=== PATIENT | male | born 1975 | race African-American/Black ===

== ENCOUNTER 2021-11-16 13:12 | Emergency (ER) | payer MEDICARE, MEDICAID ==
--- NOTE | 2021-11-16 15:32 | ED Physician Documentation ---
History of Present Illness - Stated complaint Stated Complaint: BAL/MEDICAL CLEARANCE - Chief complaint Chief Complaint: General - Additonal information Additional information: 46-year-old male has a history of heavy alcohol use, schizoaffective and bipolar disorder is brought to the emergency department by his supportive security compliance specialist in order to obtain medical clearance for him to go to [facility]. His intake is scheduled for 10 PM tonight. His housing supportive specialist picked him up from a local alf where he was kicked out for being intoxicated. He does report that he had a few swigs of alcohol prior to presenting here. They would like medical clearance for his blood pressure and reported history of a heart murmur. His blood pressure is 140/90. I do not auscultate a murmur on my exam. Review of Systems Unable to obtain: Intoxicated PD PAST MEDICAL HISTORY - Allergies Allergies/Adverse Reactions: Allergies Allergy/AdvReac Type Severity Reaction Status Date / Time No Known Drug Allergies Allergy Verified 11/16/21 13:18 PD ED PE NORMAL - General General: No acute distress, Other (Smells heavily of in alcohol appears clinically intoxicated) - HEENT HEENT: PERRL, Moist mucous membranes - Neck Neck: Supple, no meningeal sign, No adenopathy - Cardiac Cardiac: RRR, No murmur, Strong equal pulses - Respiratory Respiratory: No respiratory distress, Clear bilaterally - Abdomen Abdomen: Normal bowel sounds, Soft, Non tender - Back Back: No CVA TTP, No spinal TTP - Derm Derm: Normal color, Warm and dry, No rash - Extremities Extremities: No deformity, No tenderness to palpate, Normal ROM s pain - Neuro Neuro: shactor 2-12 intact, No motor deficit. No: Normal speech (Slurred speech) Eye Opening: To Voice Motor: Obeys Commands Verbal: Confused GCS Score: 13 - Psych Psych: Normal affect Results - Vitals Vitals: Vital Signs - 24 hr 11/16/21 11/16/21 13:18 17:22 Temperature 36.6 C Heart Rate 67 67 Respiratory 16 18 Rate Blood Pressure 140/90 H 118/88 H O2 Saturation 99 97 Oxygen O2 Source Room air - EKG (time done) 1608 Rate: Rate (enter#) (59) Rhythm: Sinus bradycardia [place]: Normal Intervals: Normal CA QRS: Normal Ischemia: Normal ST segments Compare to prior EKG: Old EKG unavailable Computer interpretation: Agree with computer - Labs Labs: Laboratory Tests 11/16/21 11/16/21 16:13 16:13 WBC 4.9 RBC 5.55 Hgb 13.1 L Hct 40.5 L MCV 73.0 L MCH 23.6 L MCHC 32.3 RDW 14.3 Plt Count 259 MPV 9.3 Neut # (Auto) 3.0 Lymph # (Auto) 1.4 L [place] # (Auto) 0.4 Eos # (Auto) 0.1 Baso # (Auto) 0.0 Absolute Nucleated RBC 0.00 Nucleated RBC % 0.0 Sodium 140 Potassium 4.0 Chloride 102 Carbon Dioxide 27 Anion Gap 11.0 BUN 16 Creatinine 0.9 Estimated GFR (MDRD) 109 Glucose 116 H Calcium 8.8 Total Bilirubin 0.7 AST 39 ALT 35 Alkaline Phosphatase 40 L Total Protein 7.6 Albumin 4.2 Globulin 3.4 Albumin/Globulin Ratio 1.2 Lipase 30 Ethyl Alcohol 213.0 - Rads (name of study) cxr Radiology: Final report received (no acute cardiopulmonary process) PD MEDICAL DECISION MAKING - ED course Complexity details: reviewed results, re-evaluated patient, considered differential, d/w patient ED course: 46-year-old male who is homeless was brought to the emergency department by his security compliance specialist to obtain medical clearance in order to go to a [facility]. He admits that the patient had drank heavily just prior to picking him up. On presentation to the emergency department the patient does follow commands though is somnolent and snores heavily. He smells heavily of alcohol. Initially [facility] had concerns as the patient had reported a history at some point in the past of a murmur and hypertension. We do note modest hypertension here in the emergency department but his screening EKG is unremarkable. He had also been reportedly had a murmur in the past though one is not auscultated on exam today. His screening EKG is unremarkable for age. His electrolytes and blood count are normal. His blood alcohol is 213. However patient is too intoxicated at this time to safely leave the emergency department. He reportedly has an intake at [facility] that is scheduled for 10 PM. He will be allowed to metabolize here in the emergency department and when awake and appropriate enough we will call Ted the director of [facility] who has agreed to come pick the patient up and go to [facility]. 1838: Ted is at the bedside. He is evaluated the patient. Patient is now alert smoke her here and and is ready for discharge. He will be released to Ted who will take him to I to look for further processing of alcohol use and detox Departure - Departure Disposition: 01 Home, Self Care Clinical Impression: Alcohol intoxication Qualifiers: Complication of substance-induced condition: uncomplicated Qualified Code(s): F10.920 - Alcohol use, unspecified with intoxication, uncomplicated Condition: Stable Record reviewed to determine appropriate education?: Yes Comments: Jose you are brought to the emergency department today to obtain medical clearance for detox. Your EKG is normal. Your screening labs with the exception of an elevated alcohol level which was 213 are normal. Your chest x-ray is normal. We do not hear a murmur on exam. Your blood pressure has been normal or sometimes just mildly elevated but no treatment is indicated today from the emergency department. I wish you well in your journey.
[2021-11-16] MEDS ORDERED: SODIUM CHLORIDE 0.9% 1,000 ML IV STA (16:04)
[2021-11-16 16:18] LABS: BASOPHILS % (AUTO) 0.8 %; EOSINOPHILS # (AUTO) 0.1 10^3/uL (0.0-0.7); EOSINOPHILS % (AUTO) 1.9 %; HCT - HEMATOCRIT 40.5 % (42.0-52.0); HGB - HEMOGLOBIN 13.1 g/dL (14.0-18.0); LYMPHOCYTES # (AUTO) 1.4 10^3/uL (1.5-3.5); LYMPHOCYTES % (AUTO) 28.5 %; MEAN CORPUSCULAR HEMOGLOBIN 23.6 pg (27.0-31.0); MEAN CORPUSCULAR HGB CONC 32.3 g/dL (32.0-36.0); MEAN PLATELET VOLUME 9.3 fL (7.4-11.4); MONOCYTES # (AUTO) 0.4 10^3/uL (0.0-1.0); MONOCYTES % (AUTO) 7.4 %; NEUTROPHILS % (AUTO) 61.2 %; PLT - PLATELET COUNT 259 10^3/uL (130-450); RED BLOOD COUNT 5.55 10^6/uL (4.70-6.10); RED CELL DISTRIBUTION WIDTH 14.3 % (12.0-15.0); WHITE BLOOD COUNT 4.9 x10^3/uL (4.8-10.8)
--- NOTE | 2021-11-16 16:27 | XRAY Report ---
PROCEDURE: Chest 1 View X-Ray INDICATIONS: chest pain TECHNIQUE: One view of the chest was acquired. COMPARISON: None FINDINGS: Surgical changes and devices: None. Lungs and pleura: No pleural effusions or pneumothorax. Lungs are clear. Mediastinum: Mediastinal contours appear normal. Heart size is normal. Bones and chest wall: No suspicious bony lesions. Overlying soft tissues appear unremarkable. Age-i ndeterminate but chronic appearing healed rib fracture deformities noted in the right upper chest. IMPRESSION: Chest without acute cardiopulmonary abnormalities or focal airspace disease. Multiple age-indeterminate but chronic appearing rib fracture deformities noted in the upper right ch est. Recommend clinical correlation. Reviewed by: Jean Hwang MD on 11/16/2021 4:26 PM PDT Approved by: Jean Hwang MD on 11/16/2021 4:26 PM PDT Station ID: [id number]
[2021-11-16 16:31] LABS: ALBUMIN 4.2 g/dL (3.2-5.5); ALBUMIN/GLOBULIN RATIO 1.2 (1.0-2.2); BILIRUBIN,TOTAL 0.7 mg/dL (0.2-1.0); CALCIUM 8.8 mg/dL (8.5-10.3); CREATININE 0.9 mg/dL (0.6-1.2); TOTAL PROTEIN 7.6 g/dL (6.7-8.2)
[2021-11-16 17:22] VITALS: BP 118/88
== END 2021-11-16 18:45 | disposition home or self-care (01) ==
LOC: ED 13:12
DX: Z02.79 Encounter for issue of other medical certificate (principal); F10.920 Alcohol use, unspecified with intoxication, uncomplicated; Z59.00 Homelessness unspecified
CPT/HCPCS: 36415; 71045; 80053; 83690; 85025; 93005; 96360; 99283; 99284; G0480; 80320

== ENCOUNTER 2022-03-17 20:33 | Outpatient (CLI) | payer MEDICARE, MEDICAID | END 2022-03-17 20:34 | disposition critical access hospital (66) | LOC: EMS 20:33 | DX: R45.851 Suicidal ideations (principal); R45.1 Restlessness and agitation; Z72.89 Other problems related to lifestyle | CPT/HCPCS: A0425; A0429 ==

== ENCOUNTER 2022-08-18 07:35 | Outpatient (CLI) | payer MEDICARE, MEDICAID | END 2022-08-18 07:36 | disposition critical access hospital (66) | LOC: EMS 07:35 | DX: F10.129 Alcohol abuse with intoxication, unspecified (principal) | CPT/HCPCS: A0425; A0429 ==

== ENCOUNTER 2022-08-18 07:53 | Emergency (ER) | payer MEDICARE, MEDICAID ==
--- OUTSIDE RECORDS SUMMARY | 2022-08-18 08:23 | EXTERNAL MEDICAL SUMMARY RPT | Continuity of Care Document ---
:1975 Author Organization [facility] Address [address] [place] [address] Phone Care Team Providers Name Role Phone StacieRachel lujan Unavailable Unavailable Allergies and Intolerances date description facility type (no date) amoxicillin [facility] (unknown) Encounters No information. Functional Status No information. Immunizations No information. Medications No information. Problems date description facility 2022-06-02 11:49 Alcohol dependence, [facility] 2022-06-04 00:00 Alcoholic intoxication [facility] 2022-06-04 07:43 Alcohol abuse with intoxication, [facility] 2022-06-04 07:44 Alcohol abuse, [facility] 2022-06-04 07:44 Alcohol abuse with intoxication, unspec [facility] 2022-06-04 07:44 Alcohol dependence, uncomplicated [facility] 2022-06-04 07:44 Slurred speech [facility] 2022-08-05 11:21 Alcohol dependence, [facility] 2022-08-05 11:23 Alcohol dependence, [facility] 2022-08-06 09:03 Alcohol abuse with intoxication, [facility] 2022-08-06 09:04 Alcohol abuse with intoxication, [facility] 2022-08-06 09:08 Alcohol abuse, [facility] 2022-08-06 09:09 Alcohol abuse with intoxication, [facility] Procedures date description facility 2022-06-04 00:00 Computed tomography of head or brain [facility] contrast Results/Labs test date author facility value unit interpret ation Result panel 1 (unknown) (no date) (unknown) [facility] Result panel 2 (unknown) (no date) (unknown) [facility] Result panel 3 (unknown) (no date) (unknown) [facility] Result panel 4 (unknown) (no date) (unknown) [facility]) Result panel 5 (unknown) (no date) (unknown[facility]) Result panel 6 (unknown) (no date) (unknown[facility]) Result panel 7 (unknown) (no date) (unknown[facility]) Result panel 8 (unknown) (no date) (unknown[facility]) Result panel 9 (unknown) (no date) (unknown[facility]) Result panel 10 (unknown) (no date) (unknown[facility]) Result panel 11 (unknown) (no date) (unknown[facility]) Result panel 12 (unknown) (no date) (unknown[facility]) Result panel 13 (unknown) (no date) (unknown[facility]) Result panel 14 (unknown) (no date) (unknown) [facility]) Result panel 15 (unknown) (no date) (unknown) [facility]) Result panel 16 (unknown) (no date) (unknown) [facility]) Result panel 17 (unknown) (no date) (unknown[facility]) Result panel 18 (unknown) (no date) (unknown) [facility]) Result panel 19 (unknown) (no date) (unknown) [facility]) Result panel 20 (unknown) (no date) (unknown[facility]) Result panel 21 (unknown) (no date) (unknown) [facility]) Result panel 22 (unknown) (no date) (unknown) [facility]) Result panel 23 (unknown) (no date) (unknown) [facility]) Result panel 24 (unknown) (no date) (unknown) [facility]) Result panel 25 (unknown) (no date) (unknown) [facility]) Result panel 26 (unknown) (no date) (unknown) [facility]) Result panel 27 (unknown) (no date) (unknown) [facility]) Result panel 28 (unknown) (no date) (unknown) [facility]) Result panel 29 (unknown) (no date) (unknown[facility]) Result panel 30 (unknown) (no date) (unknown[facility]) Result panel 31 (unknown) (no date) (unknown[facility] Result panel 32 (unknown) (no (unknown) (unknown) (no value) (units (unk nown) date) unknown) (unknown) (no (unknown) (unknown) 06/04/22 (units (unkno wn) date) unknown) (unknown) (no (unknown) (unknown) [id number] (units (unkn own) date) [address] unknown) (unknown) (no (unknown) (unknown) Accession (units (unkn own) date) Number: unknown) [id number] (unknown) (no (unknown) (unknown) Age/Sex: 46 / M (units (unknown) date) Date of Service: unknown) (unknown) (no (unknown) (unknown) [place] (units ( unknown) date) [id number] unknown) (unknown) (no (unknown) (unknown) Approved by: (units (u nknown) date) Chuy Kerns unknownLeighann Martinez on 06/04/2022 at 18:48 (unknown) (no (unknown) (unknown) Brain: No (units (unkn own) date) midline shift. unknown) No intracranial masses or hemorrhage. Mcgill-white (unknown) (no (unknown) (unknown) COMPARISON: (units (un known) date) [facility], unknown) CT, CT HEAD/BRAIN WO CON, 02/21/2022, 14:38. (unknown) (no (unknown) (unknown) CSF spaces: (units (un known) date) Basal cisterns unknown) are patent. No extra-axial fluid collections. (unknown) (no (unknown) (unknown) CT Scan Report (units (unknown) date) unknown) (unknown) (no (unknown) (unknown) : 1975 (units (unknown) date) Acct:[id number] unknown) (unknown) (no (unknown) (unknown) FINDINGS: (units (unkn own) date) unknown) (unknown) (no (unknown) (unknown) IMPRESSION: No (units (unknown) date) acute unknown) intracranial abnormality. (unknown) (no (unknown) (unknown) INDICATIONS: (units (u nknown) date) etoh found down unknown) (unknown) (no (unknown) (unknown) Image quality: (units (unknown) date) Excellent. unknown) (unknown) (no (unknown) (unknown) [facility] (units (unknown) date) unknown) (unknown) (no (unknown) (unknown) Loc: ED (units (unkno wn) date) unknown) (unknown) (no (unknown) (unknown) [id number] (units (unk nown) date) unknown) (unknown) (no (unknown) (unknown) Noncontrast 4.5 (units (unknown) date) mm thick angled unknown) axial sections acquired from the foramen magnum (unknown) (no (unknown) (unknown) Ordering (units (unkno wn) date) Provider: unknown) Rachel Grant D.O. (unknown) (no (unknown) (unknown) PROCEDURE: CT (units ( unknown) date) HEAD/BRAIN WO unknown) CON (unknown) (no (unknown) (unknown) Patient: (units (unkno wn) date) Marianna Meyers unknown) Yobany MR#: (unknown) (no (unknown) (unknown) Procedure: CT (units ( unknown) date) head/brain wo unknown) con (unknown) (no (unknown) (unknown) Signed (units (unkno wn) date) unknown) (unknown) (no (unknown) (unknown) Sinuses: (units (unkno wn) date) Visualized unknown) sinuses and mastoids are clear. (unknown) (no (unknown) (unknown) Skull and face: (units (unknown) date) Calvarium and unknown) visualized facial bones are intact, without (unknown) (no (unknown) (unknown) TECHNIQUE: (units (unk nown) date) unknown) (unknown) (no (unknown) (unknown) Ventricles (units (unk nown) date) unknown) (unknown) (no (unknown) (unknown) are normal in (units ( unknown) date) size and shape. unknown) (unknown) (no (unknown) (unknown) following (units (unkn own) date) unknown) (unknown) (no (unknown) (unknown) interface is (units (u nknown) date) normal. unknown) (unknown) (no (unknown) (unknown) lesions. (units (unkno wn) date) unknown) (unknown) (no (unknown) (unknown) matter (units (unkno wn) date) unknown) (unknown) (no (unknown) (unknown) patient (units (unkno wn) date) unknown) (unknown) (no (unknown) (unknown) size. (units (unkno wn) date) unknown) (unknown) (no (unknown) (unknown) suspicious (units (unk nown) date) unknown) (unknown) (no (unknown) (unknown) to the (units (unkno wn) date) unknown) (unknown) (no (unknown) (unknown) vertex, with (units (u nknown) date) coronal and unknown) sagittal reformats. For radiation dose reduction, the (unknown) (no (unknown) (unknown) was used: (units (unkn own) date) automated unknown) exposure control, adjustment of mA and/or kV according to Result panel 33 (unknown) (no (unknown) (unknown) (no value) (units (unk nown) date) unknown) (unknown) (no (unknown) (unknown) 10 mg PO DAILY (units (unknown) date) Qty: 30 0RF unknown) (unknown) (no (unknown) (unknown) 06/04/22 18:02 (units (unknown) date) unknown) (unknown) (no (unknown) (unknown) 06/04/22 (units (unkno wn) date) unknown) (unknown) (no (unknown) (unknown) 150 mg PO QDAY (units (unknown) date) Qty: 0 unknown) (unknown) (no (unknown) (unknown) 15:57 06/04/22 (units (unknown) date) unknown) (unknown) (no (unknown) (unknown) 17:00 06/04/22 (units (unknown) date) unknown) (unknown) (no (unknown) (unknown) 17:47 (units (unkno wn) date) unknown) (unknown) (no (unknown) (unknown) 20 mg PO QDAY (units ( unknown) date) Qty: 0 unknown) (unknown) (no (unknown) (unknown) 50 mg PO Q8HP (units ( unknown) date) PRNQty: 0 unknown) (unknown) (no (unknown) (unknown) 8 mg PO Qty: 0 (units (unknown) date) unknown) (unknown) (no (unknown) (unknown) Age/Sex: 46 / M (units (unknown) date) unknown) (unknown) (no (unknown) (unknown) Alcohol abuse (units ( unknown) date) unknown) (unknown) (no (unknown) (unknown) Alcohol type: (units ( unknown) date) beer and hard unknown) liquor (unknown) (no (unknown) (unknown) Allergies (units (unkn own) date) unknown) (unknown) (no (unknown) (unknown) Allergy/AdvReac (units (unknown) date) Type Severity unknown) Reaction Status Date / Time (unknown) (no (unknown) (unknown) Blood Pressure (units (unknown) date) 117/75 06/04/22 unknown) 15:57 (unknown) (no (unknown) (unknown) Blood Pressure (units (unknown) date) 117/75 unknown) (unknown) (no (unknown) (unknown) CT head/brain wo (units (unknown) date) con Stat unknown) (unknown) (no (unknown) (unknown) Chief Complaint: (units (unknown) date) Toxicology Problem unknown) (unknown) (no (unknown) (unknown) Course (units (unkno wn) date) unknown) (unknown) (no (unknown) (unknown) : 1975 (units (unknown) date) Acct:[id number] unknown) (unknown) (no (unknown) (unknown) Date of Service: (units (unknown) date) 06/04/22 unknown) (unknown) (no (unknown) (unknown) Departure (units (unkn own) date) unknown) (unknown) (no (unknown) (unknown) Discharge Plan (units (unknown) date) unknown) (unknown) (no (unknown) (unknown) ED Orders (units (unkn own) date) unknown) (unknown) (no (unknown) (unknown) ER Physician: (units ( unknown) date) Rachel Grant unknown) D.O. (unknown) (no (unknown) (unknown) Emergency Report (units (unknown) date) unknown) (unknown) (no (unknown) (unknown) Exam (units (unkno wn) date) unknown) (unknown) (no (unknown) (unknown) General (units (unkno wn) date) unknown) (unknown) (no (unknown) (unknown) HPI - Alcohol (units ( unknown) date) unknown) (unknown) (no (unknown) (unknown) Home Medications (units (unknown) date) unknown) (unknown) (no (unknown) (unknown) Initial Vital (units ( unknown) date) Signs unknown) (unknown) (no (unknown) (unknown) Initial Vital (units ( unknown) date) Signs: unknown) (unknown) (no (unknown) (unknown) [facility] (units (unknown) date) [address] unknown) [place] [id number] (unknown) (no (unknown) (unknown) [id number] (units (unk nown) date) unknown) (unknown) (no (unknown) (unknown) Medical History (units (unknown) date) (Reviewed 04/03/22 unknown) @ 06:23 by Moises Marques DO) (unknown) (no (unknown) (unknown) Medication (units (unk nown) date) Instructions unknown) Recorded Confirmed (unknown) (no (unknown) (unknown) Medication (units (unk nown) date) Instructions unknown) Recorded (unknown) (no (unknown) (unknown) Miscellaneous,Doc (units (unknown) date) MD rafael [Primary unknown) Care Provider] (unknown) (no (unknown) (unknown) Mode of arrival: (units (unknown) date) EMS unknown) (unknown) (no (unknown) (unknown) No Action (units (unkn own) date) unknown) (unknown) (no (unknown) (unknown) Ordered: (units (unkno wn) date) unknown) (unknown) (no (unknown) (unknown) Orders (units (unkno wn) date) unknown) (unknown) (no (unknown) (unknown) Oxygen Delivery (units (unknown) date) Method 06/04/22 unknown) 15:57 (unknown) (no (unknown) (unknown) Oxygen Delivery (units (unknown) date) Method Room Air unknown) (unknown) (no (unknown) (unknown) PTSD (units (unkno wn) date) (post-traumatic unknown) stress disorder) (unknown) (no (unknown) (unknown) Patient History (units (unknown) date) unknown) (unknown) (no (unknown) (unknown) Patient: (units (unkno wn) date) Marianna Meyers unknown) MR#: (unknown) (no (unknown) (unknown) Prescriptions: (units (unknown) date) unknown) (unknown) (no (unknown) (unknown) Previous Rx's (units ( unknown) date) unknown) (unknown) (no (unknown) (unknown) Pulse Oximetry (units (unknown) date) 100 06/04/22 15:57 unknown) (unknown) (no (unknown) (unknown) Pulse Oximetry (units (unknown) date) 100 unknown) (unknown) (no (unknown) (unknown) Pulse Rate 78 (units ( unknown) date) 06/04/22 15:57 unknown) (unknown) (no (unknown) (unknown) Pulse Rate 78 (units ( unknown) date) unknown) (unknown) (no (unknown) (unknown) Referrals: (units (unk nown) date) unknown) (unknown) (no (unknown) (unknown) Related Data (units (u nknown) date) unknown) (unknown) (no (unknown) (unknown) Respiratory Rate (units (unknown) date) 15 06/04/22 15:57 unknown) (unknown) (no (unknown) (unknown) Respiratory Rate (units (unknown) date) 15 16 20 unknown) (unknown) (no (unknown) (unknown) Schizoaffective (units (unknown) date) disorder, bipolar unknown) type (unknown) (no (unknown) (unknown) Signed By: (units (unk nown) date) unknown) (unknown) (no (unknown) (unknown) Smoking Status: (units (unknown) date) Current every day unknown) smoker (unknown) (no (unknown) (unknown) Social History (units (unknown) date) (Reviewed 04/03/22 unknown) @ 06:23 by Moises Marques DO) (unknown) (no (unknown) (unknown) Source: EMS (units (un known) date) unknown) (unknown) (no (unknown) (unknown) Stated Complaint: (units (unknown) date) Intoxicated unknown) (unknown) (no (unknown) (unknown) Substance Use (units ( unknown) date) Type: marijuana unknown) (unknown) (no (unknown) (unknown) Temperature 97.7 (units (unknown) date) F 06/04/22 15:57 unknown) (unknown) (no (unknown) (unknown) Temperature 97.7 (units (unknown) date) F unknown) (unknown) (no (unknown) (unknown) Time Seen by (units (u nknown) date) Provider: 06/04/22 unknown) 17:46 (unknown) (no (unknown) (unknown) Vital Signs - 8 (units (unknown) date) hr unknown) (unknown) (no (unknown) (unknown) Vital Signs (units (un known) date) unknown) (unknown) (no (unknown) (unknown) Vital signs: (units (u nknown) date) unknown) (unknown) (no (unknown) (unknown) alcohol intake (units (unknown) date) frequency: 3 or unknown) more drinks per day (unknown) (no (unknown) (unknown) amoxicillin (units (un known) date) Allergy Verified unknown) 06/04/22 16:00 (unknown) (no (unknown) (unknown) hydroxyzine HCl (units (unknown) date) 50 MG tablet unknown) (unknown) (no (unknown) (unknown) hydroxyzine HCl (units (unknown) date) 50 mg tablet 50 mg unknown) PO Q8HP PRN ##0 07/16/16 (unknown) (no (unknown) (unknown) lisinopril 20 MG (units (unknown) date) tablet unknown) (unknown) (no (unknown) (unknown) lisinopril 20 mg (units (unknown) date) tablet 20 mg PO unknown) QDAY ##0 07/16/16 (unknown) (no (unknown) (unknown) olanzapine 10 mg (units (unknown) date) tablet (Zyprexa) unknown) 10 mg PO DAILY #30 tabs 10/13/21 (unknown) (no (unknown) (unknown) olanzapine (units (unk nown) date) [Zyprexa] 10 mg unknown) tablet (unknown) (no (unknown) (unknown) perphenazine 8 MG (units (unknown) date) tablet unknown) (unknown) (no (unknown) (unknown) perphenazine 8 mg (units (unknown) date) tablet 8 mg PO ##0 unknown) 07/16/16 (unknown) (no (unknown) (unknown) trazodone 150 MG (units (unknown) date) tablet unknown) (unknown) (no (unknown) (unknown) trazodone 150 mg (units (unknown) date) tablet 150 mg PO unknown) QDAY ##0 07/16/16 Result panel 34 (unknown) (no (unknown) (unknown) (no value) (units (unk nown) date) unknown) (unknown) (no (unknown) (unknown) 10 mg PO DAILY (units (unknown) date) Qty: 30 0RF unknown) (unknown) (no (unknown) (unknown) 06/04/22 18:02 (units (unknown) date) unknown) (unknown) (no (unknown) (unknown) 06/04/22 18:51 (units (unknown) date) unknown) (unknown) (no (unknown) (unknown) 06/04/22 18:52 (units (unknown) date) unknown) (unknown) (no (unknown) (unknown) 06/04/22 (units (unkno wn) date) unknown) (unknown) (no (unknown) (unknown) 150 mg PO QDAY (units (unknown) date) Qty: 0 unknown) (unknown) (no (unknown) (unknown) 15:57 06/04/22 (units (unknown) date) unknown) (unknown) (no (unknown) (unknown) 17:00 06/04/22 (units (unknown) date) unknown) (unknown) (no (unknown) (unknown) 17:47 (units (unkno wn) date) unknown) (unknown) (no (unknown) (unknown) 20 mg PO QDAY (units ( unknown) date) Qty: 0 unknown) (unknown) (no (unknown) (unknown) 50 mg PO Q8HP (units ( unknown) date) PRNQty: 0 unknown) (unknown) (no (unknown) (unknown) 8 mg PO Qty: 0 (units (unknown) date) unknown) (unknown) (no (unknown) (unknown) ? (units (unkno wn) date) unknown) (unknown) (no (unknown) (unknown) Abdomen: Soft (units ( unknown) date) nontender unknown) (unknown) (no (unknown) (unknown) Accession Number: (units (unknown) date) [id number] ?? unknown) (unknown) (no (unknown) (unknown) Acct:[id number] (units (unknown) date) unknown) (unknown) (no (unknown) (unknown) Age/Sex: 46 / M (units (unknown) date) unknown) (unknown) (no (unknown) (unknown) Alcohol abuse (units ( unknown) date) unknown) (unknown) (no (unknown) (unknown) Alcohol type: (units ( unknown) date) beer and hard unknown) liquor (unknown) (no (unknown) (unknown) Allergies (units (unkn own) date) unknown) (unknown) (no (unknown) (unknown) Allergy/AdvReac (units (unknown) date) Type Severity unknown) Reaction Status Date / Time (unknown) (no (unknown) (unknown) Approved by: (units (u nknown) date) king Peralta M.D. on 06/04/2022 at 18:48? (unknown) (no (unknown) (unknown) Blood Pressure (units (unknown) date) 117/75 06/04/22 unknown) 15:57 (unknown) (no (unknown) (unknown) Blood Pressure (units (unknown) date) 117/75 unknown) (unknown) (no (unknown) (unknown) Brain:? No (units (unk nown) date) midline shift.? No unknown) intracranial masses or hemorrhage.? Mcgill-white (unknown) (no (unknown) (unknown) CBC Auto Diff (units ( unknown) date) [Complete Blood unknown) Count AUTO DIFF] Stat (unknown) (no (unknown) (unknown) CMP (units (unkno wn) date) [Comprehensive unknown) Metabolic Panel] Stat (unknown) (no (unknown) (unknown) COMPARISON:? (units (u nknown) date) [facility], unknown) CT, CT HEAD/BRAIN WO CON, 02/21/2022, 14:38. (unknown) (no (unknown) (unknown) CSF spaces:? (units (u nknown) date) Basal cisterns are unknown) patent.? No extra-axial fluid collections.? (unknown) (no (unknown) (unknown) CT head/brain wo (units (unknown) date) con Stat unknown) (unknown) (no (unknown) (unknown) CT scan - head: (units (unknown) date) unknown) (unknown) (no (unknown) (unknown) Cardiac: Regular (units (unknown) date) rate no murmurs unknown) (unknown) (no (unknown) (unknown) Chief Complaint: (units (unknown) date) Toxicology Problem unknown) (unknown) (no (unknown) (unknown) Course (units (unkno wn) date) unknown) (unknown) (no (unknown) (unknown) : 1975 (units (unknown) date) Acct:[id number] unknown) (unknown) (no (unknown) (unknown) : 1975 (units (unknown) date) unknown) (unknown) (no (unknown) (unknown) Date of Service: (units (unknown) date) 06/04/22 unknown) (unknown) (no (unknown) (unknown) Departure (units (unkn own) date) unknown) (unknown) (no (unknown) (unknown) Discharge Plan (units (unknown) date) unknown) (unknown) (no (unknown) (unknown) ED Orders (units (unkn own) date) unknown) (unknown) (no (unknown) (unknown) ER Physician: (units ( unknown) date) Rachel Grant unknown) D.O. (unknown) (no (unknown) (unknown) ETOH [Ethanol (units ( unknown) date) (ETOH)] Stat unknown) (unknown) (no (unknown) (unknown) Emergency Report (units (unknown) date) unknown) (unknown) (no (unknown) (unknown) Exam (units (unkno wn) date) unknown) (unknown) (no (unknown) (unknown) Extremities: No (units (unknown) date) gross bony unknown) deformity (unknown) (no (unknown) (unknown) FINDINGS:? (units (unk nown) date) unknown) (unknown) (no (unknown) (unknown) GCS (units (unkno wn) date) unknown) (unknown) (no (unknown) (unknown) Gen.: Patient (units ( unknown) date) sleeping responds unknown) to painful stimuli (unknown) (no (unknown) (unknown) General (units (unkno wn) date) unknown) (unknown) (no (unknown) (unknown) [place] coma (units (u nknown) date) scale eye opening: unknown) None (unknown) (no (unknown) (unknown) [place] coma (units (u nknown) date) scale motor unknown) response: Localising (unknown) (no (unknown) (unknown) Freddy coma (units (u nknown) date) scale total score: unknown) 8 (unknown) (no (unknown) (unknown) Freddy coma (units (u nknown) date) scale verbal unknown) response: Sounds (unknown) (no (unknown) (unknown) HEENT: No head (units (unknown) date) trauma unknown) (unknown) (no (unknown) (unknown) HPI - Alcohol (units ( unknown) date) unknown) (unknown) (no (unknown) (unknown) HPI narrative: (units (unknown) date) unknown) (unknown) (no (unknown) (unknown) History of (units (unk nown) date) Present Illness unknown) (unknown) (no (unknown) (unknown) Home Medications (units (unknown) date) unknown) (unknown) (no (unknown) (unknown) IMPRESSION:? No (units (unknown) date) acute intracranial unknown) abnormality. (unknown) (no (unknown) (unknown) INDICATIONS:? (units ( unknown) date) etoh found down unknown) (unknown) (no (unknown) (unknown) Image quality:? (units (unknown) date) Excellent.? unknown) (unknown) (no (unknown) (unknown) Imaging Data (units (u nknown) date) unknown) (unknown) (no (unknown) (unknown) Initial Vital (units ( unknown) date) Signs unknown) (unknown) (no (unknown) (unknown) Initial Vital (units ( unknown) date) Signs: unknown) (unknown) (no (unknown) (unknown) [facility] (units (unknown) date) [address] [place] [address] Street unknown) [place] [address] (unknown) (no (unknown) (unknown) Lipase Stat (units (un known) date) unknown) (unknown) (no (unknown) (unknown) Loc: ED (units (unkno wn) date) unknown) (unknown) (no (unknown) (unknown) Lungs: Clear (units (u nknown) date) bilaterally no unknown) respiratory distress (unknown) (no (unknown) (unknown) [id number] (units (unk nown) date) unknown) (unknown) (no (unknown) (unknown) MDM - Alcohol (units ( unknown) date) unknown) (unknown) (no (unknown) (unknown) MR#: [id number] (units (unknown) date) unknown) (unknown) (no (unknown) (unknown) Medical History (units (unknown) date) (Reviewed 06/04/22 unknown) @ 18:59 by Rachel Grant DO) (unknown) (no (unknown) (unknown) Medication (units (unk nown) date) Instructions unknown) Recorded Confirmed (unknown) (no (unknown) (unknown) Medication (units (unk nown) date) Instructions unknown) Recorded (unknown) (no (unknown) (unknown) Miscellaneous,Doc (units (unknown) date) MD rafael [Primary unknown) Care Provider] (unknown) (no (unknown) (unknown) Mode of arrival: (units (unknown) date) EMS unknown) (unknown) (no (unknown) (unknown) Neck: No JVD (units (u nknown) date) unknown) (unknown) (no (unknown) (unknown) Neurologic: (units (un known) date) Response to unknown) painful stimuli only (unknown) (no (unknown) (unknown) No Action (units (unkn own) date) unknown) (unknown) (no (unknown) (unknown) Noncontrast 4.5 (units (unknown) date) mm thick angled unknown) axial sections acquired from the foramen magnum (unknown) (no (unknown) (unknown) Ordered: (units (unkno wn) date) unknown) (unknown) (no (unknown) (unknown) Ordering (units (unkno wn) date) Provider: unknown) Rachel Grant D.O. (unknown) (no (unknown) (unknown) Orders (units (unkno wn) date) unknown) (unknown) (no (unknown) (unknown) Oxygen Delivery (units (unknown) date) Method 06/04/22 unknown) 15:57 (unknown) (no (unknown) (unknown) Oxygen Delivery (units (unknown) date) Method Room Air unknown) (unknown) (no (unknown) (unknown) PROCEDURE:? CT (units (unknown) date) HEAD/BRAIN WO CON unknown) (unknown) (no (unknown) (unknown) PTSD (units (unkno wn) date) (post-traumatic unknown) stress disorder) (unknown) (no (unknown) (unknown) Patient History (units (unknown) date) unknown) (unknown) (no (unknown) (unknown) Patient is a (units (u nknown) date) 46-year-old male unknown) history of alcohol abuse, hypertension, bipolar (unknown) (no (unknown) (unknown) Patient: (units (unkno wn) date) Marianna Meyers unknown) MR#: (unknown) (no (unknown) (unknown) Patient: (units (unkno wn) date) Marianna Meyers unknown) (unknown) (no (unknown) (unknown) Prescriptions: (units (unknown) date) unknown) (unknown) (no (unknown) (unknown) Previous Rx's (units ( unknown) date) unknown) (unknown) (no (unknown) (unknown) Procedure: CT (units ( unknown) date) head/brain wo con unknown) (unknown) (no (unknown) (unknown) Pulse Oximetry (units (unknown) date) 100 06/04/22 15:57 unknown) (unknown) (no (unknown) (unknown) Pulse Oximetry (units (unknown) date) 100 unknown) (unknown) (no (unknown) (unknown) Pulse Rate 78 (units ( unknown) date) 06/04/22 15:57 unknown) (unknown) (no (unknown) (unknown) Pulse Rate 78 (units ( unknown) date) unknown) (unknown) (no (unknown) (unknown) ROS Unobtainable: (units (unknown) date) Unobtainable due unknown) to medical condition (unknown) (no (unknown) (unknown) Radiologist's (units ( unknown) date) Impressoin: unknown) (unknown) (no (unknown) (unknown) Referrals: (units (unk nown) date) unknown) (unknown) (no (unknown) (unknown) Related Data (units (u nknown) date) unknown) (unknown) (no (unknown) (unknown) Respiratory Rate (units (unknown) date) 15 06/04/22 15:57 unknown) (unknown) (no (unknown) (unknown) Respiratory Rate (units (unknown) date) 15 16 20 unknown) (unknown) (no (unknown) (unknown) Review of Systems (units (unknown) date) unknown) (unknown) (no (unknown) (unknown) Schizoaffective (units (unknown) date) disorder, bipolar unknown) type (unknown) (no (unknown) (unknown) Scores (units (unkno wn) date) unknown) (unknown) (no (unknown) (unknown) Signed By: (units (unk nown) date) unknown) (unknown) (no (unknown) (unknown) Sinuses:? (units (unkn own) date) Visualized sinuses unknown) and mastoids are clear.? (unknown) (no (unknown) (unknown) Skull and face:? (units (unknown) date) Calvarium and unknown) visualized facial bones are intact, without (unknown) (no (unknown) (unknown) Smoking Status: (units (unknown) date) Current every day unknown) smoker (unknown) (no (unknown) (unknown) Social History (units (unknown) date) (Reviewed 06/04/22 unknown) @ 18:59 by Rachel Grant DO) (unknown) (no (unknown) (unknown) Source: EMS (units (un known) date) unknown) (unknown) (no (unknown) (unknown) Stated Complaint: (units (unknown) date) Intoxicated unknown) (unknown) (no (unknown) (unknown) Substance Use (units ( unknown) date) Type: marijuana unknown) (unknown) (no (unknown) (unknown) TECHNIQUE:? (units (un known) date) unknown) (unknown) (no (unknown) (unknown) TSH [Thyroid (units (u nknown) date) Stimulating unknown) Hormone] Stat (unknown) (no (unknown) (unknown) Temperature 97.7 (units (unknown) date) F 06/04/22 15:57 unknown) (unknown) (no (unknown) (unknown) Temperature 97.7 (units (unknown) date) F unknown) (unknown) (no (unknown) (unknown) Time Seen by (units (u nknown) date) Provider: 06/04/22 unknown) 17:46 (unknown) (no (unknown) (unknown) Urine Drug (units (unk nown) date) Screen, Rapid Stat unknown) (unknown) (no (unknown) (unknown) Ventricles (units (unk nown) date) unknown) (unknown) (no (unknown) (unknown) Vital Signs - 8 (units (unknown) date) hr unknown) (unknown) (no (unknown) (unknown) Vital Signs (units (un known) date) unknown) (unknown) (no (unknown) (unknown) Vital signs: (units (u nknown) date) unknown) (unknown) (no (unknown) (unknown) alcohol intake (units (unknown) date) frequency: 3 or unknown) more drinks per day (unknown) (no (unknown) (unknown) amoxicillin (units (un known) date) Allergy Verified unknown) 06/04/22 16:00 (unknown) (no (unknown) (unknown) are normal in (units ( unknown) date) size and shape.? unknown) (unknown) (no (unknown) (unknown) comes to the ED (units (unknown) date) today found down unknown) outside. It is quite cold out. He is (unknown) (no (unknown) (unknown) following (units (unkn own) date) unknown) (unknown) (no (unknown) (unknown) hydroxyzine HCl (units (unknown) date) 50 MG tablet unknown) (unknown) (no (unknown) (unknown) hydroxyzine HCl (units (unknown) date) 50 mg tablet 50 mg unknown) PO Q8HP PRN ##0 07/16/16 (unknown) (no (unknown) (unknown) interface is (units (u nknown) date) normal.? unknown) (unknown) (no (unknown) (unknown) lesions.? (units (unkn own) date) unknown) (unknown) (no (unknown) (unknown) lisinopril 20 MG (units (unknown) date) tablet unknown) (unknown) (no (unknown) (unknown) lisinopril 20 mg (units (unknown) date) tablet 20 mg PO unknown) QDAY ##0 07/16/16 (unknown) (no (unknown) (unknown) matter (units (unkno wn) date) unknown) (unknown) (no (unknown) (unknown) minimal movement. (units (unknown) date) unknown) (unknown) (no (unknown) (unknown) minimally (units (unkn own) date) responsive no sign unknown) of trauma. Not able to provide history. He moans (unknown) (no (unknown) (unknown) olanzapine 10 mg (units (unknown) date) tablet (Zyprexa) unknown) 10 mg PO DAILY #30 tabs 10/13/21 (unknown) (no (unknown) (unknown) olanzapine (units (unk nown) date) [Zyprexa] 10 mg unknown) tablet (unknown) (no (unknown) (unknown) patient (units (unkno wn) date) unknown) (unknown) (no (unknown) (unknown) perphenazine 8 MG (units (unknown) date) tablet unknown) (unknown) (no (unknown) (unknown) perphenazine 8 mg (units (unknown) date) tablet 8 mg PO ##0 unknown) 07/16/16 (unknown) (no (unknown) (unknown) size.? (units (unkno wn) date) unknown) (unknown) (no (unknown) (unknown) suspicious (units (unk nown) date) unknown) (unknown) (no (unknown) (unknown) to the (units (unkno wn) date) unknown) (unknown) (no (unknown) (unknown) trazodone 150 MG (units (unknown) date) tablet unknown) (unknown) (no (unknown) (unknown) trazodone 150 mg (units (unknown) date) tablet 150 mg PO unknown) QDAY ##0 07/16/16 (unknown) (no (unknown) (unknown) vertex, with (units (u nknown) date) coronal and unknown) sagittal reformats.? For radiation dose reduction, the (unknown) (no (unknown) (unknown) was used:? (units (unk nown) date) automated exposure unknown) control, adjustment of mA and/or kV according to Result panel 35 (unknown) (no (unknown) (unknown) (no value) (units (unk nown) date) unknown) (unknown) (no (unknown) (unknown) *Continue to take (units (unknown) date) medications as unknown) directed (unknown) (no (unknown) (unknown) *Follow up with (units (unknown) date) your primary care unknown) provider in 2-3 days or call [phone] (unknown) (no (unknown) (unknown) *Return to ER if (units (unknown) date) you should have unknown) any new, worsening or concerning symptoms (unknown) (no (unknown) (unknown) *What to do: (units (u nknown) date) unknown) (unknown) (no (unknown) (unknown) *You have been (units (unknown) date) diagnosed with unknown) alcohol intoxication (unknown) (no (unknown) (unknown) 10 mg PO DAILY (units (unknown) date) Qty: 30 0RF unknown) (unknown) (no (unknown) (unknown) 06/04/22 18:02 (units (unknown) date) unknown) (unknown) (no (unknown) (unknown) 06/04/22 18:51 (units (unknown) date) unknown) (unknown) (no (unknown) (unknown) 06/04/22 18:52 (units (unknown) date) unknown) (unknown) (no (unknown) (unknown) 06/04/22 19:35 (units (unknown) date) unknown) (unknown) (no (unknown) (unknown) 06/04/22 (units (unkno wn) date) unknown) (unknown) (no (unknown) (unknown) 150 mg PO QDAY (units (unknown) date) Qty: 0 unknown) (unknown) (no (unknown) (unknown) 15:57 06/04/22 (units (unknown) date) unknown) (unknown) (no (unknown) (unknown) 17:00 06/04/22 (units (unknown) date) unknown) (unknown) (no (unknown) (unknown) 17:47 (units (unkno wn) date) unknown) (unknown) (no (unknown) (unknown) 19:24 (units (unkno wn) date) unknown) (unknown) (no (unknown) (unknown) 20 mg PO QDAY (units ( unknown) date) Qty: 0 unknown) (unknown) (no (unknown) (unknown) 2000-patient is (units (unknown) date) now awake alert unknown) able to stand up and put on his pants without (unknown) (no (unknown) (unknown) 50 mg PO Q8HP (units ( unknown) date) PRNQty: 0 unknown) (unknown) (no (unknown) (unknown) 8 mg PO Qty: 0 (units (unknown) date) unknown) (unknown) (no (unknown) (unknown) ? (units (unkno wn) date) unknown) (unknown) (no (unknown) (unknown) Abdomen: Soft (units ( unknown) date) nontender unknown) (unknown) (no (unknown) (unknown) Accession Number: (units (unknown) date) [id number] ?? unknown) (unknown) (no (unknown) (unknown) Acct:[id number] (units (unknown) date) unknown) (unknown) (no (unknown) (unknown) Activity (units (unkno wn) date) Restrictions/Addit unknown) ional Instructions: (unknown) (no (unknown) (unknown) Age/Sex: 46 / M (units (unknown) date) unknown) (unknown) (no (unknown) (unknown) Alcohol abuse (units ( unknown) date) unknown) (unknown) (no (unknown) (unknown) Alcohol (units (unkno wn) date) intoxication unknown) (unknown) (no (unknown) (unknown) Alcohol type: (units ( unknown) date) beer and hard unknown) liquor (unknown) (no (unknown) (unknown) Allergies (units (unkn own) date) unknown) (unknown) (no (unknown) (unknown) Allergy/AdvReac (units (unknown) date) Type Severity unknown) Reaction Status Date / Time (unknown) (no (unknown) (unknown) Approved by: (units (u nknown) date) Chuy Kerns unknownLeighann Martinez on 06/04/2022 at 18:48? (unknown) (no (unknown) (unknown) Blood Pressure (units (unknown) date) 107/70 unknown) (unknown) (no (unknown) (unknown) Blood Pressure (units (unknown) date) 117/75 06/04/22 unknown) 15:57 (unknown) (no (unknown) (unknown) Blood Pressure (units (unknown) date) 117/75 unknown) (unknown) (no (unknown) (unknown) Brain:? No (units (unk nown) date) midline shift.? No unknown) intracranial masses or hemorrhage.? Mcgill-white (unknown) (no (unknown) (unknown) CBC Auto Diff (units ( unknown) date) [Complete Blood unknown) Count AUTO DIFF] Stat (unknown) (no (unknown) (unknown) CMP (units (unkno wn) date) [Comprehensive unknown) Metabolic Panel] Stat (unknown) (no (unknown) (unknown) COMPARISON:? (units (u nknown) date) [facility], unknown) CT, CT HEAD/BRAIN WO CON, 02/21/2022, 14:38. (unknown) (no (unknown) (unknown) CSF spaces:? (units (u nknown) date) Basal cisterns are unknown) patent.? No extra-axial fluid collections.? (unknown) (no (unknown) (unknown) CT head/brain wo (units (unknown) date) con Stat unknown) (unknown) (no (unknown) (unknown) CT scan - head: (units (unknown) date) unknown) (unknown) (no (unknown) (unknown) Cardiac: Regular (units (unknown) date) rate no murmurs unknown) (unknown) (no (unknown) (unknown) Chief Complaint: (units (unknown) date) Toxicology Problem unknown) (unknown) (no (unknown) (unknown) Clinical (units (unkno wn) date) Impression: unknown) (unknown) (no (unknown) (unknown) Course (units (unkno wn) date) unknown) (unknown) (no (unknown) (unknown) : 1975 (units (unknown) date) Acct:[id number] unknown) (unknown) (no (unknown) (unknown) : 1975 (units (unknown) date) unknown) (unknown) (no (unknown) (unknown) Date of Service: (units (unknown) date) 06/04/22 unknown) (unknown) (no (unknown) (unknown) Departure (units (unkn own) date) unknown) (unknown) (no (unknown) (unknown) Discharge Plan (units (unknown) date) unknown) (unknown) (no (unknown) (unknown) ED Orders (units (unkn own) date) unknown) (unknown) (no (unknown) (unknown) ER Physician: (units ( unknown) date) Rachel Grant unknown) D.O. (unknown) (no (unknown) (unknown) ETOH [Ethanol (units ( unknown) date) (ETOH)] Stat unknown) (unknown) (no (unknown) (unknown) Emergency Report (units (unknown) date) unknown) (unknown) (no (unknown) (unknown) Exam (units (unkno wn) date) unknown) (unknown) (no (unknown) (unknown) Extremities: No (units (unknown) date) gross bony unknown) deformity (unknown) (no (unknown) (unknown) FINDINGS:? (units (unk nown) date) unknown) (unknown) (no (unknown) (unknown) GCS (units (unkno wn) date) unknown) (unknown) (no (unknown) (unknown) Gen.: Patient (units ( unknown) date) sleeping responds unknown) to painful stimuli (unknown) (no (unknown) (unknown) General (units (unkno wn) date) unknown) (unknown) (no (unknown) (unknown) Keyes coma (units (u nknown) date) scale eye opening: unknown) None (unknown) (no (unknown) (unknown) Keyes coma (units (u nknown) date) scale motor unknown) response: Localising (unknown) (no (unknown) (unknown) Freddy coma (units (u nknown) date) scale total score: unknown) 8 (unknown) (no (unknown) (unknown) Freddy coma (units (u nknown) date) scale verbal unknown) response: Sounds (unknown) (no (unknown) (unknown) HEENT: No head (units (unknown) date) trauma unknown) (unknown) (no (unknown) (unknown) HPI - Alcohol (units ( unknown) date) unknown) (unknown) (no (unknown) (unknown) HPI narrative: (units (unknown) date) unknown) (unknown) (no (unknown) (unknown) History of (units (unk nown) date) Present Illness unknown) (unknown) (no (unknown) (unknown) Home Medications (units (unknown) date) unknown) (unknown) (no (unknown) (unknown) IMPRESSION:? No (units (unknown) date) acute intracranial unknown) abnormality. (unknown) (no (unknown) (unknown) INDICATIONS:? (units ( unknown) date) etoh found down unknown) (unknown) (no (unknown) (unknown) Image quality:? (units (unknown) date) Excellent.? unknown) (unknown) (no (unknown) (unknown) Imaging Data (units (u nknown) date) unknown) (unknown) (no (unknown) (unknown) Initial Vital (units ( unknown) date) Signs unknown) (unknown) (no (unknown) (unknown) Initial Vital (units ( unknown) date) Signs: unknown) (unknown) (no (unknown) (unknown) Instructions: DI (units (unknown) date) for Alcohol Use unknown) Disorder (unknown) (no (unknown) (unknown) [facility] (units (unknown) date) [address] [place] [address] unknown) [place] [address] (unknown) (no (unknown) (unknown) Lipase Stat (units (un known) date) unknown) (unknown) (no (unknown) (unknown) Loc: ED (units (unkno wn) date) unknown) (unknown) (no (unknown) (unknown) Lungs: Clear (units (u nknown) date) bilaterally no unknown) respiratory distress (unknown) (no (unknown) (unknown) [id number] (units (unk nown) date) unknown) (unknown) (no (unknown) (unknown) MDM - Alcohol (units ( unknown) date) unknown) (unknown) (no (unknown) (unknown) MDM Narrative (units ( unknown) date) unknown) (unknown) (no (unknown) (unknown) MR#: [id number] (units (unknown) date) unknown) (unknown) (no (unknown) (unknown) Medical History (units (unknown) date) (Reviewed 06/04/22 unknown) @ 18:59 by Rachel Grant DO) (unknown) (no (unknown) (unknown) Medical decision (units (unknown) date) making narrative: unknown) (unknown) (no (unknown) (unknown) Medication (units (unk nown) date) Instructions unknown) Recorded Confirmed (unknown) (no (unknown) (unknown) Medication (units (unk nown) date) Instructions unknown) Recorded (unknown) (no (unknown) (unknown) Miscellaneous,Doc (units (unknown) date) MD rafael [Primary unknown) Care Provider] (unknown) (no (unknown) (unknown) Mode of arrival: (units (unknown) date) EMS unknown) (unknown) (no (unknown) (unknown) Neck: No JVD (units (u nknown) date) unknown) (unknown) (no (unknown) (unknown) Neurologic: (units (un known) date) Response to unknown) painful stimuli only (unknown) (no (unknown) (unknown) No Action (units (unkn own) date) unknown) (unknown) (no (unknown) (unknown) Noncontrast 4.5 (units (unknown) date) mm thick angled unknown) axial sections acquired from the foramen magnum (unknown) (no (unknown) (unknown) Ordered: (units (unkno wn) date) unknown) (unknown) (no (unknown) (unknown) Ordering (units (unkno wn) date) Provider: unknown) Rachel Grant D.O. (unknown) (no (unknown) (unknown) Orders (units (unkno wn) date) unknown) (unknown) (no (unknown) (unknown) Oxygen Delivery (units (unknown) date) Method 06/04/22 unknown) 15:57 (unknown) (no (unknown) (unknown) Oxygen Delivery (units (unknown) date) Method Room Air unknown) (unknown) (no (unknown) (unknown) PROCEDURE:? CT (units (unknown) date) HEAD/BRAIN WO CON unknown) (unknown) (no (unknown) (unknown) PTSD (units (unkno wn) date) (post-traumatic unknown) stress disorder) (unknown) (no (unknown) (unknown) Patient (units (unkno wn) date) Disposition: Home unknown) (unknown) (no (unknown) (unknown) Patient History (units (unknown) date) unknown) (unknown) (no (unknown) (unknown) Patient is a (units (u nknown) date) 46-year-old male unknown) history of alcohol abuse, hypertension, bipolar (unknown) (no (unknown) (unknown) Patient: (units (unkno wn) date) Celia Meyersnathan Yobany unknown) MR#: (unknown) (no (unknown) (unknown) Patient: (units (unkno wn) date) LuigiMarianna Haywood unknown) (unknown) (no (unknown) (unknown) Please go (units (unkn own) date) directly to hotel unknown) (unknown) (no (unknown) (unknown) Prescriptions: (units (unknown) date) unknown) (unknown) (no (unknown) (unknown) Previous Rx's (units ( unknown) date) unknown) (unknown) (no (unknown) (unknown) Procedure: CT (units ( unknown) date) head/brain wo con unknown) (unknown) (no (unknown) (unknown) Pulse Oximetry (units (unknown) date) 100 06/04/22 15:57 unknown) (unknown) (no (unknown) (unknown) Pulse Oximetry (units (unknown) date) 100 unknown) (unknown) (no (unknown) (unknown) Pulse Oximetry 98 (units (unknown) date) unknown) (unknown) (no (unknown) (unknown) Pulse Rate 61 (units ( unknown) date) unknown) (unknown) (no (unknown) (unknown) Pulse Rate 78 (units ( unknown) date) 06/04/22 15:57 unknown) (unknown) (no (unknown) (unknown) Pulse Rate 78 (units ( unknown) date) unknown) (unknown) (no (unknown) (unknown) ROS Unobtainable: (units (unknown) date) Unobtainable due unknown) to medical condition (unknown) (no (unknown) (unknown) Radiologist's (units ( unknown) date) Impressoin: unknown) (unknown) (no (unknown) (unknown) Referrals: (units (unk nown) date) unknown) (unknown) (no (unknown) (unknown) Related Data (units (u nknown) date) unknown) (unknown) (no (unknown) (unknown) Respiratory Rate (units (unknown) date) 15 06/04/22 15:57 unknown) (unknown) (no (unknown) (unknown) Respiratory Rate (units (unknown) date) 15 16 20 unknown) (unknown) (no (unknown) (unknown) Respiratory Rate (units (unknown) date) 16 unknown) (unknown) (no (unknown) (unknown) Review of Systems (units (unknown) date) unknown) (unknown) (no (unknown) (unknown) Schizoaffective (units (unknown) date) disorder, bipolar unknown) type (unknown) (no (unknown) (unknown) Scores (units (unkno wn) date) unknown) (unknown) (no (unknown) (unknown) Signed By: (units (unk nown) date) unknown) (unknown) (no (unknown) (unknown) Sinuses:? (units (unkn own) date) Visualized sinuses unknown) and mastoids are clear.? (unknown) (no (unknown) (unknown) Skull and face:? (units (unknown) date) Calvarium and unknown) visualized facial bones are intact, without (unknown) (no (unknown) (unknown) Smoking Status: (units (unknown) date) Current every day unknown) smoker (unknown) (no (unknown) (unknown) Social History (units (unknown) date) (Reviewed 06/04/22 unknown) @ 18:59 by Rachel Grant DO) (unknown) (no (unknown) (unknown) Source: EMS (units (un known) date) unknown) (unknown) (no (unknown) (unknown) Stated Complaint: (units (unknown) date) Intoxicated unknown) (unknown) (no (unknown) (unknown) Substance Use (units ( unknown) date) Type: marijuana unknown) (unknown) (no (unknown) (unknown) TECHNIQUE:? (units (un known) date) unknown) (unknown) (no (unknown) (unknown) TSH [Thyroid (units (u nknown) date) Stimulating unknown) Hormone] Stat (unknown) (no (unknown) (unknown) Temperature 97.2 (units (unknown) date) F L unknown) (unknown) (no (unknown) (unknown) Temperature 97.7 (units (unknown) date) F 06/04/22 15:57 unknown) (unknown) (no (unknown) (unknown) Temperature 97.7 (units (unknown) date) F unknown) (unknown) (no (unknown) (unknown) Time Seen by (units (u nknown) date) Provider: 06/04/22 unknown) 17:46 (unknown) (no (unknown) (unknown) Urine Drug (units (unk nown) date) Screen, Rapid Stat unknown) (unknown) (no (unknown) (unknown) Urine Microscopic (units (unknown) date) Stat unknown) (unknown) (no (unknown) (unknown) Ventricles (units (unk nown) date) unknown) (unknown) (no (unknown) (unknown) Vital Signs - 8 (units (unknown) date) hr unknown) (unknown) (no (unknown) (unknown) Vital Signs (units (un known) date) unknown) (unknown) (no (unknown) (unknown) Vital signs: (units (u nknown) date) unknown) (unknown) (no (unknown) (unknown) alcohol intake (units (unknown) date) frequency: 3 or unknown) more drinks per day (unknown) (no (unknown) (unknown) amoxicillin (units (un known) date) Allergy Verified unknown) 06/04/22 16:00 (unknown) (no (unknown) (unknown) and is pending. (units (unknown) date) However he is unknown) clinically sober. (unknown) (no (unknown) (unknown) any assistance. (units (unknown) date) He is a known unknown) alcoholic well known to this facility. Head CT (unknown) (no (unknown) (unknown) are normal in (units ( unknown) date) size and shape.? unknown) (unknown) (no (unknown) (unknown) cab. He denies (units (unknown) date) any suicidal or unknown) homicidal ideations. Blood work which is drawn (unknown) (no (unknown) (unknown) comes to the ED (units (unknown) date) today found down unknown) outside. It is quite cold out. He is (unknown) (no (unknown) (unknown) following (units (unkn own) date) unknown) (unknown) (no (unknown) (unknown) hydroxyzine HCl (units (unknown) date) 50 MG tablet unknown) (unknown) (no (unknown) (unknown) hydroxyzine HCl (units (unknown) date) 50 mg tablet 50 mg unknown) PO Q8HP PRN ##0 07/16/16 (unknown) (no (unknown) (unknown) interface is (units (u nknown) date) normal.? unknown) (unknown) (no (unknown) (unknown) is negative. He (units (unknown) date) is going to go to unknown) a hotel. We are currently calling him a taxi (unknown) (no (unknown) (unknown) lesions.? (units (unkn own) date) unknown) (unknown) (no (unknown) (unknown) lisinopril 20 MG (units (unknown) date) tablet unknown) (unknown) (no (unknown) (unknown) lisinopril 20 mg (units (unknown) date) tablet 20 mg PO unknown) QDAY ##0 07/16/16 (unknown) (no (unknown) (unknown) matter (units (unkno wn) date) unknown) (unknown) (no (unknown) (unknown) minimal movement. (units (unknown) date) unknown) (unknown) (no (unknown) (unknown) minimally (units (unkn own) date) responsive no sign unknown) of trauma. Not able to provide history. He moans (unknown) (no (unknown) (unknown) olanzapine 10 mg (units (unknown) date) tablet (Zyprexa) unknown) 10 mg PO DAILY #30 tabs 10/13/21 (unknown) (no (unknown) (unknown) olanzapine (units (unk nown) date) [Zyprexa] 10 mg unknown) tablet (unknown) (no (unknown) (unknown) patient (units (unkno wn) date) unknown) (unknown) (no (unknown) (unknown) perphenazine 8 MG (units (unknown) date) tablet unknown) (unknown) (no (unknown) (unknown) perphenazine 8 mg (units (unknown) date) tablet 8 mg PO ##0 unknown) 07/16/16 (unknown) (no (unknown) (unknown) size.? (units (unkno wn) date) unknown) (unknown) (no (unknown) (unknown) suspicious (units (unk nown) date) unknown) (unknown) (no (unknown) (unknown) to the (units (unkno wn) date) unknown) (unknown) (no (unknown) (unknown) trazodone 150 MG (units (unknown) date) tablet unknown) (unknown) (no (unknown) (unknown) trazodone 150 mg (units (unknown) date) tablet 150 mg PO unknown) QDAY ##0 07/16/16 (unknown) (no (unknown) (unknown) vertex, with (units (u nknown) date) coronal and unknown) sagittal reformats.? For radiation dose reduction, the (unknown) (no (unknown) (unknown) was used:? (units (unk nown) date) automated exposure unknown) control, adjustment of mA and/or kV according to Result panel 36 (unknown) (no date) (unknown) (unknown) 0 /ul (unkn own) (unknown) (no date) (unknown) (unknown) 0 /ul (unkn own) (unknown) (no date) (unknown) (unknown) 0.7 % (unkn own) (unknown) (no date) (unknown) (unknown) 0.8 % (unkn own) (unknown) (no date) (unknown) (unknown) 12.5 g/dl (unkn own) (unknown) (no date) (unknown) (unknown) 14.8 % (unkn own) (unknown) (no date) (unknown) (unknown) 1700 /ul (unkn own) (unknown) (no date) (unknown) (unknown) 200 /ul (unkn own) (unknown) (no date) (unknown) (unknown) 23.1 pg (unkn own) (unknown) (no date) (unknown) (unknown) 2700 /ul (unkn own) (unknown) (no date) (unknown) (unknown) 309 x10 3/ul (unkn own) (unknown) (no date) (unknown) (unknown) 32.3 % (unkn own) (unknown) (no date) (unknown) (unknown) 35.8 % (unkn own) (unknown) (no date) (unknown) (unknown) 38.6 % (unkn own) (unknown) (no date) (unknown) (unknown) 4.7 x10 3/ul (unkn own) (unknown) (no date) (unknown) (unknown) 5.0 % (unkn own) (unknown) (no date) (unknown) (unknown) 5.40 x10 6/ul (unkn own) (unknown) (no date) (unknown) (unknown) 57.7 % (unkn own) (unknown) (no date) (unknown) (unknown) 71.5 fl (unkn own) Result panel 37 (unknown) (no date) (unknown) (unknown) Negative (units (unkn own) unknown) (unknown) (no date) (unknown) (unknown) Normal (units (unkn own) unknown) Result panel 38 (unknown) (no date) (unknown) (unknown) 0-1 /HPF (units (unkn own) unknown) (unknown) (no date) (unknown) (unknown) 0-1/HPF (units (unkn own) unknown) (unknown) (no date) (unknown) (unknown) Cult Not (units (unkn own) Indicated unknown) (unknown) (no date) (unknown) (unknown) None Seen (units (unk nown) unknown) (unknown) (no date) (unknown) (unknown) None Seen (units (unk nown) unknown) (unknown) (no date) (unknown) (unknown) None Seen (units (unk nown) unknown) Result panel 39 (unknown) (no date) (unknown) (unknown) > 60 ml/min (unkn own) (unknown) (no date) (unknown) (unknown) > 60 ml/min (unkn own) (unknown) (no date) (unknown) (unknown) 0.8 mg/dl (unkn own) (unknown) (no date) (unknown) (unknown) 0.84 mg/dl (unkn own) (unknown) (no date) (unknown) (unknown) 1.4 (units unknown) (unknown) (unknown) (no date) (unknown) (unknown) 10 mg/dl (unkn own) (unknown) (no date) (unknown) (unknown) 105 mg/dl (unkn own) (unknown) (no date) (unknown) (unknown) 105 mg/dl (unkn own) (unknown) (no date) (unknown) (unknown) 107 mmol/l (unkn own) (unknown) (no date) (unknown) (unknown) 11.9 (units unknown) (unknown) (unknown) (no date) (unknown) (unknown) 145 mmol/l (unkn own) (unknown) (no date) (unknown) (unknown) 25 iu/l (unkn own) (unknown) (no date) (unknown) (unknown) 3.4 g/dl (unkn own) (unknown) (no date) (unknown) (unknown) 30 mmol/l (unkn own) (unknown) (no date) (unknown) (unknown) 32 iu/l (unkn own) (unknown) (no date) (unknown) (unknown) 4.5 mmol/l (unkn own) (unknown) (no date) (unknown) (unknown) 4.6 g/dl (unkn own) (unknown) (no date) (unknown) (unknown) 47 u/l (unkn own) (unknown) (no date) (unknown) (unknown) 62 u/l (unkn own) (unknown) (no date) (unknown) (unknown) 8.0 g/dl (unkn own) (unknown) (no date) (unknown) (unknown) 8.8 mg/dl (unkn own) Result panel 40 (unknown) (no date) (unknown) (unknown) > 60 ml/min (unkn own) (unknown) (no date) (unknown) (unknown) > 60 ml/min (unkn own) (unknown) (no date) (unknown) (unknown) 0.8 mg/dl (unkn own) (unknown) (no date) (unknown) (unknown) 0.84 mg/dl (unkn own) (unknown) (no date) (unknown) (unknown) 1.4 (units unknown) (unknown) (unknown) (no date) (unknown) (unknown) 10 mg/dl (unkn own) (unknown) (no date) (unknown) (unknown) 105 mg/dl (unkn own) (unknown) (no date) (unknown) (unknown) 105 mg/dl (unkn own) (unknown) (no date) (unknown) (unknown) 107 mmol/l (unkn own) (unknown) (no date) (unknown) (unknown) 11.9 (units unknown) (unknown) (unknown) (no date) (unknown) (unknown) 145 mmol/l (unkn own) (unknown) (no date) (unknown) (unknown) 249 mg/dl (unkn own) (unknown) (no date) (unknown) (unknown) 249 mg/dl (unkn own) (unknown) (no date) (unknown) (unknown) 25 iu/l (unkn own) (unknown) (no date) (unknown) (unknown) 3.4 g/dl (unkn own) (unknown) (no date) (unknown) (unknown) 30 mmol/l (unkn own) (unknown) (no date) (unknown) (unknown) 32 iu/l (unkn own) (unknown) (no date) (unknown) (unknown) 4.5 mmol/l (unkn own) (unknown) (no date) (unknown) (unknown) 4.6 g/dl (unkn own) (unknown) (no date) (unknown) (unknown) 47 u/l (unkn own) (unknown) (no date) (unknown) (unknown) 62 u/l (unkn own) (unknown) (no date) (unknown) (unknown) 8.0 g/dl (unkn own) (unknown) (no date) (unknown) (unknown) 8.8 mg/dl (unkn own) Result panel 41 (unknown) (no date) (unknown) (unknown) 0.587 uiu/ml (unkn own) Result panel 42 (unknown) (no (unknown) (unknown) (no value) (units (unk nown) date) unknown) (unknown) (no (unknown) (unknown) <Electronically (units (unknown) date) signed by Rachel unknownLeighann Grant D.O.> (unknown) (no (unknown) (unknown) *Continue to take (units (unknown) date) medications as unknown) directed (unknown) (no (unknown) (unknown) *Follow up with (units (unknown) date) your primary care unknown) provider in 2-3 days or call [phone] (unknown) (no (unknown) (unknown) *Return to ER if (units (unknown) date) you should have any unknown) new, worsening or concerning symptoms (unknown) (no (unknown) (unknown) *What to do: (units (u nknown) date) unknown) (unknown) (no (unknown) (unknown) *You have been (units (unknown) date) diagnosed with unknown) alcohol intoxication (unknown) (no (unknown) (unknown) 10 mg PO DAILY (units (unknown) date) Qty: 30 0RF unknown) (unknown) (no (unknown) (unknown) 06/04/22 06/04/22 (units (unknown) date) 06/04/22 unknown) Range/Units (unknown) (no (unknown) (unknown) 06/04/22 06/04/22 (units (unknown) date) Range/Units unknown) (unknown) (no (unknown) (unknown) 06/04/22 19:30 (units (unknown) date) unknown) (unknown) (no (unknown) (unknown) 06/04/22 (units (unkno wn) date) unknown) (unknown) (no (unknown) (unknown) 06/05/22 0317 (units ( unknown) date) unknown) (unknown) (no (unknown) (unknown) 150 mg PO QDAY (units (unknown) date) Qty: 0 unknown) (unknown) (no (unknown) (unknown) 19:24 (units (unkno wn) date) unknown) (unknown) (no (unknown) (unknown) 19:30 19:30 19:30 (units (unknown) date) unknown) (unknown) (no (unknown) (unknown) 19:30 19:30 (units (un known) date) unknown) (unknown) (no (unknown) (unknown) 20 mg PO QDAY Qty: (units (unknown) date) 0 unknown) (unknown) (no (unknown) (unknown) 1999-patient is (units (unknown) date) now awake alert unknown) able to stand up and put on his pants without (unknown) (no (unknown) (unknown) 50 mg PO Q8HP (units ( unknown) date) PRNQty: 0 unknown) (unknown) (no (unknown) (unknown) 8 mg PO Qty: 0 (units (unknown) date) unknown) (unknown) (no (unknown) (unknown) ? (units (unkno wn) date) unknown) (unknown) (no (unknown) (unknown) ALT (<50) IU/L (units (unknown) date) unknown) (unknown) (no (unknown) (unknown) ALT 25 (<50) IU/L (units (unknown) date) unknown) (unknown) (no (unknown) (unknown) AST (17-59) IU/L (units (unknown) date) unknown) (unknown) (no (unknown) (unknown) AST 32 (17-59) (units (unknown) date) IU/L unknown) (unknown) (no (unknown) (unknown) Abdomen: Soft (units ( unknown) date) nontender unknown) (unknown) (no (unknown) (unknown) Accession Number: (units (unknown) date) [id number] ?? unknown) (unknown) (no (unknown) (unknown) Acct:[id number] (units (unknown) date) unknown) (unknown) (no (unknown) (unknown) Activity (units (unkno wn) date) Restrictions/Additi unknown) onal Instructions: (unknown) (no (unknown) (unknown) Age/Sex: 46 / M (units (unknown) date) unknown) (unknown) (no (unknown) (unknown) Albumin (3.5-5.0) (units (unknown) date) g/dL unknown) (unknown) (no (unknown) (unknown) Albumin 4.6 (units (un known) date) (3.5-5.0) g/dL unknown) (unknown) (no (unknown) (unknown) Albumin/Globulin (units (unknown) date) Ratio (1.0-2.8) unknown) (unknown) (no (unknown) (unknown) Albumin/Globulin (units (unknown) date) Ratio 1.4 (1.0-2.8) unknown) (unknown) (no (unknown) (unknown) Alcohol abuse (units ( unknown) date) unknown) (unknown) (no (unknown) (unknown) Alcohol (units (unkno wn) date) intoxication unknown) (unknown) (no (unknown) (unknown) Alcohol type: beer (units (unknown) date) and hard liquor unknown) (unknown) (no (unknown) (unknown) Alkaline (units (unkno wn) date) Phosphatase unknown) (38-126) U/L (unknown) (no (unknown) (unknown) Alkaline (units (unkno wn) date) Phosphatase 47 unknown) (38-126) U/L (unknown) (no (unknown) (unknown) Allergies (units (unkn own) date) unknown) (unknown) (no (unknown) (unknown) Allergy/AdvReac (units (unknown) date) Type Severity unknown) Reaction Status Date / Time (unknown) (no (unknown) (unknown) Approved by: (units (u nknown) date) Chuy Kerns unknownLeighann Martinez on 06/04/2022 at 18:48? (unknown) (no (unknown) (unknown) BUN (9-20) mg/dL (units (unknown) date) unknown) (unknown) (no (unknown) (unknown) BUN 10 (9-20) (units ( unknown) date) mg/dL unknown) (unknown) (no (unknown) (unknown) BUN/Creatinine (units (unknown) date) Ratio (6-22) unknown) (unknown) (no (unknown) (unknown) BUN/Creatinine (units (unknown) date) Ratio 11.9 (6-22) unknown) (unknown) (no (unknown) (unknown) Baso # (Auto) (units ( unknown) date) (0-100) /uL unknown) (unknown) (no (unknown) (unknown) Baso # (Auto) 0 (units (unknown) date) (0-100) /uL unknown) (unknown) (no (unknown) (unknown) Baso % (Auto) (units ( unknown) date) (0-2) % unknown) (unknown) (no (unknown) (unknown) Baso % (Auto) 0.8 (units (unknown) date) (0-2) % unknown) (unknown) (no (unknown) (unknown) Blood Pressure (units (unknown) date) 107/70 unknown) (unknown) (no (unknown) (unknown) Blood Pressure (units (unknown) date) 117/75 06/04/22 unknown) 15:57 (unknown) (no (unknown) (unknown) Blood work is back (units (unknown) date) overall reassuring unknown) should have an alcohol level 249. (unknown) (no (unknown) (unknown) Brain:? No midline (units (unknown) date) shift.? No unknown) intracranial masses or hemorrhage.? Mcgill-white (unknown) (no (unknown) (unknown) CBC Auto Diff (units ( unknown) date) [Complete Blood unknown) Count AUTO DIFF] Stat (unknown) (no (unknown) (unknown) CMP [Comprehensive (units (unknown) date) Metabolic Panel] unknown) Stat (unknown) (no (unknown) (unknown) COMPARISON:? (units (u nknown) date) [facility], unknown) CT, CT HEAD/BRAIN WO CON, 02/21/2022, 14:38. (unknown) (no (unknown) (unknown) CSF spaces:? Basal (units (unknown) date) cisterns are unknown) patent.? No extra-axial fluid collections.? (unknown) (no (unknown) (unknown) CT scan - head: (units (unknown) date) unknown) (unknown) (no (unknown) (unknown) Calcium (8.4-10.2) (units (unknown) date) mg/dL unknown) (unknown) (no (unknown) (unknown) Calcium 8.8 (units (un known) date) (8.4-10.2) mg/dL unknown) (unknown) (no (unknown) (unknown) Carbon Dioxide (units (unknown) date) (22-32) mmol/L unknown) (unknown) (no (unknown) (unknown) Carbon Dioxide 30 (units (unknown) date) (22-32) mmol/L unknown) (unknown) (no (unknown) (unknown) Cardiac: Regular (units (unknown) date) rate no murmurs unknown) (unknown) (no (unknown) (unknown) Chief Complaint: (units (unknown) date) Toxicology Problem unknown) (unknown) (no (unknown) (unknown) Chloride (98-107) (units (unknown) date) mmol/L unknown) (unknown) (no (unknown) (unknown) Chloride 107 (units (u nknown) date) (98-107) mmol/L unknown) (unknown) (no (unknown) (unknown) Clinical (units (unkno wn) date) Impression: unknown) (unknown) (no (unknown) (unknown) Course (units (unkno wn) date) unknown) (unknown) (no (unknown) (unknown) Creatinine (units (unk nown) date) (0.66-1.25) mg/dL unknown) (unknown) (no (unknown) (unknown) Creatinine 0.84 (units (unknown) date) (0.66-1.25) mg/dL unknown) (unknown) (no (unknown) (unknown) : 1975 (units (unknown) date) Acct:[id number] unknown) (unknown) (no (unknown) (unknown) : 1975 (units (unknown) date) unknown) (unknown) (no (unknown) (unknown) Date of Service: (units (unknown) date) 06/04/22 unknown) (unknown) (no (unknown) (unknown) Departure (units (unkn own) date) unknown) (unknown) (no (unknown) (unknown) Discharge Plan (units (unknown) date) unknown) (unknown) (no (unknown) (unknown) ED Orders (units (unkn own) date) unknown) (unknown) (no (unknown) (unknown) ER Physician: (units ( unknown) date) Rachel Grant D.O. unknown) (unknown) (no (unknown) (unknown) ETOH [Ethanol (units ( unknown) date) (ETOH)] Stat unknown) (unknown) (no (unknown) (unknown) Emergency Report (units (unknown) date) unknown) (unknown) (no (unknown) (unknown) Eos # (Auto) (units (u nknown) date) (0-450) /uL unknown) (unknown) (no (unknown) (unknown) Eos # (Auto) 0 (units (unknown) date) (0-450) /uL unknown) (unknown) (no (unknown) (unknown) Eos % (Auto) (2-4) (units (unknown) date) % unknown) (unknown) (no (unknown) (unknown) Eos % (Auto) 0.7 L (units (unknown) date) (2-4) % unknown) (unknown) (no (unknown) (unknown) Estimated GFR > 60 (units (unknown) date) (>60) mL/min unknown) (unknown) (no (unknown) (unknown) Estimated GFR (units ( unknown) date) (>60) mL/min unknown) (unknown) (no (unknown) (unknown) Ethyl Alcohol ( - (units (unknown) date) 10) mg/dL unknown) (unknown) (no (unknown) (unknown) Ethyl Alcohol 249 (units (unknown) date) H ( - 10) mg/dL unknown) (unknown) (no (unknown) (unknown) Exam (units (unkno wn) date) unknown) (unknown) (no (unknown) (unknown) Extremities: No (units (unknown) date) gross bony unknown) deformity (unknown) (no (unknown) (unknown) FINDINGS:? (units (unk nown) date) unknown) (unknown) (no (unknown) (unknown) GCS (units (unkno wn) date) unknown) (unknown) (no (unknown) (unknown) Gen.: Patient (units ( unknown) date) sleeping responds unknown) to painful stimuli (unknown) (no (unknown) (unknown) General (units (unkno wn) date) unknown) (unknown) (no (unknown) (unknown) Keyes coma scale (units (unknown) date) eye opening: None unknown) (unknown) (no (unknown) (unknown) Freddy coma scale (units (unknown) date) motor response: unknown) Localising (unknown) (no (unknown) (unknown) Keyes coma scale (units (unknown) date) total score: 8 unknown) (unknown) (no (unknown) (unknown) Freddy coma scale (units (unknown) date) verbal response: unknown) Sounds (unknown) (no (unknown) (unknown) Globulin (1.7-4.1) (units (unknown) date) g/dL unknown) (unknown) (no (unknown) (unknown) Globulin 3.4 (units (u nknown) date) (1.7-4.1) g/dL unknown) (unknown) (no (unknown) (unknown) Glucose (70-100) (units (unknown) date) mg/dL unknown) (unknown) (no (unknown) (unknown) Glucose 105 H (units ( unknown) date) (70-100) mg/dL unknown) (unknown) (no (unknown) (unknown) HEENT: No head (units (unknown) date) trauma unknown) (unknown) (no (unknown) (unknown) HPI - Alcohol (units ( unknown) date) unknown) (unknown) (no (unknown) (unknown) HPI narrative: (units (unknown) date) unknown) (unknown) (no (unknown) (unknown) Hct (41-53) % (units ( unknown) date) unknown) (unknown) (no (unknown) (unknown) Hct 38.6 L (41-53) (units (unknown) date) % unknown) (unknown) (no (unknown) (unknown) Hgb (13.5-17.5) (units (unknown) date) g/dL unknown) (unknown) (no (unknown) (unknown) Hgb 12.5 L (units (unk nown) date) (13.5-17.5) g/dL unknown) (unknown) (no (unknown) (unknown) History of Present (units (unknown) date) Illness unknown) (unknown) (no (unknown) (unknown) Home Medications (units (unknown) date) unknown) (unknown) (no (unknown) (unknown) IMPRESSION:? No (units (unknown) date) acute intracranial unknown) abnormality. (unknown) (no (unknown) (unknown) INDICATIONS:? etoh (units (unknown) date) found down unknown) (unknown) (no (unknown) (unknown) Image quality:? (units (unknown) date) Excellent.? unknown) (unknown) (no (unknown) (unknown) Imaging Data (units (u nknown) date) unknown) (unknown) (no (unknown) (unknown) Initial Vital (units ( unknown) date) Signs unknown) (unknown) (no (unknown) (unknown) Initial Vital (units ( unknown) date) Signs: unknown) (unknown) (no (unknown) (unknown) Instructions: DI (units (unknown) date) for Alcohol Use unknown) Disorder (unknown) (no (unknown) (unknown) [facility] (units (unknown) date) [address] unknown) [place] [address] (unknown) (no (unknown) (unknown) Lab Data (units (unkno wn) date) unknown) (unknown) (no (unknown) (unknown) Lab Results (units (un known) date) unknown) (unknown) (no (unknown) (unknown) Labs: (units (unkno wn) date) unknown) (unknown) (no (unknown) (unknown) Lipase (23-300) (units (unknown) date) U/L unknown) (unknown) (no (unknown) (unknown) Lipase 62 (23-300) (units (unknown) date) U/L unknown) (unknown) (no (unknown) (unknown) Lipase Stat (units (un known) date) unknown) (unknown) (no (unknown) (unknown) Loc: ED (units (unkno wn) date) unknown) (unknown) (no (unknown) (unknown) Lungs: Clear (units (u nknown) date) bilaterally no unknown) respiratory distress (unknown) (no (unknown) (unknown) Lymph # (Auto) (units (unknown) date) (7067-9056) /uL unknown) (unknown) (no (unknown) (unknown) Lymph # (Auto) (units (unknown) date) 1700 (4768-6105) unknown) /uL (unknown) (no (unknown) (unknown) Lymph % (Auto) (units (unknown) date) (25-40) % unknown) (unknown) (no (unknown) (unknown) Lymph % (Auto) (units (unknown) date) 35.8 (25-40) % unknown) (unknown) (no (unknown) (unknown) [id number] (units (unk nown) date) unknown) (unknown) (no (unknown) (unknown) MCH (26-34) PG (units (unknown) date) unknown) (unknown) (no (unknown) (unknown) MCH 23.1 L (26-34) (units (unknown) date) PG unknown) (unknown) (no (unknown) (unknown) MCHC (30-36) % (units (unknown) date) unknown) (unknown) (no (unknown) (unknown) MCHC 32.3 (30-36) (units (unknown) date) % unknown) (unknown) (no (unknown) (unknown) MCV (80-100) fL (units (unknown) date) unknown) (unknown) (no (unknown) (unknown) MCV 71.5 L (units (unk nown) date) (80-100) fL unknown) (unknown) (no (unknown) (unknown) MDM - Alcohol (units ( unknown) date) unknown) (unknown) (no (unknown) (unknown) MDM Narrative (units ( unknown) date) unknown) (unknown) (no (unknown) (unknown) MR#: [id number] (units (unknown) date) unknown) (unknown) (no (unknown) (unknown) Medical History (units (unknown) date) (Reviewed 06/04/22 unknown) @ 18:59 by Rachel Grant DO) (unknown) (no (unknown) (unknown) Medical decision (units (unknown) date) making narrative: unknown) (unknown) (no (unknown) (unknown) Medication (units (unk nown) date) Instructions unknown) Recorded Confirmed (unknown) (no (unknown) (unknown) Medication (units (unk nown) date) Instructions unknown) Recorded (unknown) (no (unknown) (unknown) Miscellaneous,Doct (units (unknown) date) or, MD [Primary unknown) Care Provider] (unknown) (no (unknown) (unknown) Mode of arrival: (units (unknown) date) EMS unknown) (unknown) (no (unknown) (unknown) [place] # (Auto) (units ( unknown) date) (0-900) /uL unknown) (unknown) (no (unknown) (unknown) [place] # (Auto) 200 (units (unknown) date) (0-900) /uL unknown) (unknown) (no (unknown) (unknown) [place] % (Auto) (units ( unknown) date) (3-14) % unknown) (unknown) (no (unknown) (unknown) [place] % (Auto) 5.0 (units (unknown) date) (3-14) % unknown) (unknown) (no (unknown) (unknown) Neck: No JVD (units (u nknown) date) unknown) (unknown) (no (unknown) (unknown) Neurologic: (units (un known) date) Response to painful unknown) stimuli only (unknown) (no (unknown) (unknown) Neut # (Auto) (units ( unknown) date) (2704-7201) /uL unknown) (unknown) (no (unknown) (unknown) Neut # (Auto) 2700 (units (unknown) date) (7894-6141) /uL unknown) (unknown) (no (unknown) (unknown) Neut % (Auto) (units ( unknown) date) (50-75) % unknown) (unknown) (no (unknown) (unknown) Neut % (Auto) 57.7 (units (unknown) date) (50-75) % unknown) (unknown) (no (unknown) (unknown) No Action (units (unkn own) date) unknown) (unknown) (no (unknown) (unknown) Noncontrast 4.5 mm (units (unknown) date) thick angled axial unknown) sections acquired from the foramen magnum (unknown) (no (unknown) (unknown) Ordered: (units (unkno wn) date) unknown) (unknown) (no (unknown) (unknown) Ordering Provider: (units (unknown) date) Rachel Grant D.O. unknown) (unknown) (no (unknown) (unknown) Orders (units (unkno wn) date) unknown) (unknown) (no (unknown) (unknown) Oxygen Delivery (units (unknown) date) Method 06/04/22 unknown) 15:57 (unknown) (no (unknown) (unknown) Oxygen Delivery (units (unknown) date) Method Room Air unknown) (unknown) (no (unknown) (unknown) PROCEDURE:? CT (units (unknown) date) HEAD/BRAIN WO CON unknown) (unknown) (no (unknown) (unknown) PTSD (units (unkno wn) date) (post-traumatic unknown) stress disorder) (unknown) (no (unknown) (unknown) Patient (units (unkno wn) date) Disposition: Home unknown) (unknown) (no (unknown) (unknown) Patient History (units (unknown) date) unknown) (unknown) (no (unknown) (unknown) Patient is a (units (u nknown) date) 46-year-old male unknown) history of alcohol abuse, hypertension, bipolar (unknown) (no (unknown) (unknown) Patient: (units (unkno wn) date) Marianna Meyers unknown) MR#: (unknown) (no (unknown) (unknown) Patient: (units (unkno wn) date) Marianna Meyers unknown) (unknown) (no (unknown) (unknown) Please go directly (units (unknown) date) to hotel unknown) (unknown) (no (unknown) (unknown) Plt Count (units (unkn own) date) (150-400) X103/uL unknown) (unknown) (no (unknown) (unknown) Plt Count 309 (units ( unknown) date) (150-400) X103/uL unknown) (unknown) (no (unknown) (unknown) Potassium (units (unkn own) date) (3.4-5.1) mmol/L unknown) (unknown) (no (unknown) (unknown) Potassium 4.5 (units ( unknown) date) (3.4-5.1) mmol/L unknown) (unknown) (no (unknown) (unknown) Prescriptions: (units (unknown) date) unknown) (unknown) (no (unknown) (unknown) Previous Rx's (units ( unknown) date) unknown) (unknown) (no (unknown) (unknown) Procedure: CT (units ( unknown) date) head/brain wo con unknown) (unknown) (no (unknown) (unknown) Pulse Oximetry 100 (units (unknown) date) 06/04/22 15:57 unknown) (unknown) (no (unknown) (unknown) Pulse Oximetry 98 (units (unknown) date) unknown) (unknown) (no (unknown) (unknown) Pulse Rate 61 (units ( unknown) date) unknown) (unknown) (no (unknown) (unknown) Pulse Rate 78 (units ( unknown) date) 06/04/22 15:57 unknown) (unknown) (no (unknown) (unknown) RBC (4.5-5.9) (units ( unknown) date) X106/uL unknown) (unknown) (no (unknown) (unknown) RBC 5.40 (4.5-5.9) (units (unknown) date) X106/uL unknown) (unknown) (no (unknown) (unknown) RDW (11.6-14.8) % (units (unknown) date) unknown) (unknown) (no (unknown) (unknown) RDW 14.8 (units (unkno wn) date) (11.6-14.8) % unknown) (unknown) (no (unknown) (unknown) ROS Unobtainable: (units (unknown) date) Unobtainable due to unknown) medical condition (unknown) (no (unknown) (unknown) Radiologist's (units ( unknown) date) Impressoin: unknown) (unknown) (no (unknown) (unknown) Referrals: (units (unk nown) date) unknown) (unknown) (no (unknown) (unknown) Related Data (units (u nknown) date) unknown) (unknown) (no (unknown) (unknown) Respiratory Rate (units (unknown) date) 15 06/04/22 15:57 unknown) (unknown) (no (unknown) (unknown) Respiratory Rate (units (unknown) date) 16 unknown) (unknown) (no (unknown) (unknown) Result diagrams: (units (unknown) date) unknown) (unknown) (no (unknown) (unknown) Review of Systems (units (unknown) date) unknown) (unknown) (no (unknown) (unknown) Schizoaffective (units (unknown) date) disorder, bipolar unknown) type (unknown) (no (unknown) (unknown) Scores (units (unkno wn) date) unknown) (unknown) (no (unknown) (unknown) Signed By: (units (unk nown) date) unknown) (unknown) (no (unknown) (unknown) Sinuses:? (units (unkn own) date) Visualized sinuses unknown) and mastoids are clear.? (unknown) (no (unknown) (unknown) Skull and face:? (units (unknown) date) Calvarium and unknown) visualized facial bones are intact, without (unknown) (no (unknown) (unknown) Smoking Status: (units (unknown) date) Current every day unknown) smoker (unknown) (no (unknown) (unknown) Social History (units (unknown) date) (Reviewed 06/04/22 unknown) @ 18:59 by Rachel Grant DO) (unknown) (no (unknown) (unknown) Sodium (137-145) (units (unknown) date) mmol/L unknown) (unknown) (no (unknown) (unknown) Sodium 145 (units (unk nown) date) (137-145) mmol/L unknown) (unknown) (no (unknown) (unknown) Source: EMS (units (un known) date) unknown) (unknown) (no (unknown) (unknown) Stated Complaint: (units (unknown) date) Intoxicated unknown) (unknown) (no (unknown) (unknown) Substance Use (units ( unknown) date) Type: marijuana unknown) (unknown) (no (unknown) (unknown) TECHNIQUE:? (units (un known) date) unknown) (unknown) (no (unknown) (unknown) TSH (0.47-4.68) (units (unknown) date) uIU/mL unknown) (unknown) (no (unknown) (unknown) TSH 0.587 (units (unkn own) date) (0.47-4.68) uIU/mL unknown) (unknown) (no (unknown) (unknown) TSH [Thyroid (units (u nknown) date) Stimulating unknown) Hormone] Stat (unknown) (no (unknown) (unknown) Temperature 97.2 F (units (unknown) date) L unknown) (unknown) (no (unknown) (unknown) Temperature 97.7 F (units (unknown) date) 06/04/22 15:57 unknown) (unknown) (no (unknown) (unknown) Time Seen by (units (u nknown) date) Provider: 06/04/22 unknown) 17:46 (unknown) (no (unknown) (unknown) Total Bilirubin (units (unknown) date) (0.2-1.3) mg/dL unknown) (unknown) (no (unknown) (unknown) Total Bilirubin (units (unknown) date) 0.8 (0.2-1.3) mg/dL unknown) (unknown) (no (unknown) (unknown) Total Protein (units ( unknown) date) (6.3-8.2) g/dL unknown) (unknown) (no (unknown) (unknown) Total Protein 8.0 (units (unknown) date) (6.3-8.2) g/dL unknown) (unknown) (no (unknown) (unknown) U Benzodiazepines (units (unknown) date) Scrn (Negative) unknown) (unknown) (no (unknown) (unknown) U Benzodiazepines (units (unknown) date) Scrn Negative unknown) (Negative) (unknown) (no (unknown) (unknown) U Marijuana (THC) (units (unknown) date) Screen (Negative) unknown) (unknown) (no (unknown) (unknown) U Marijuana (THC) (units (unknown) date) Screen Negative unknown) (Negative) (unknown) (no (unknown) (unknown) U Methamphetamines (units (unknown) date) Scrn (Negative) unknown) (unknown) (no (unknown) (unknown) U Methamphetamines (units (unknown) date) Scrn Negative unknown) (Negative) (unknown) (no (unknown) (unknown) U Opiates 300ng/mL (units (unknown) date) cut (Negative) unknown) (unknown) (no (unknown) (unknown) U Opiates 300ng/mL (units (unknown) date) cut Negative unknown) (Negative) (unknown) (no (unknown) (unknown) U Tricyclic (units (un known) date) Antidepress unknown) (Negative) (unknown) (no (unknown) (unknown) U Tricyclic (units (un known) date) Antidepress unknown) Negative (Negative) (unknown) (no (unknown) (unknown) Ur Amphetamines (units (unknown) date) Screen (Negative) unknown) (unknown) (no (unknown) (unknown) Ur Amphetamines (units (unknown) date) Screen Negative unknown) (Negative) (unknown) (no (unknown) (unknown) Ur Barbiturates (units (unknown) date) Screen (Negative) unknown) (unknown) (no (unknown) (unknown) Ur Barbiturates (units (unknown) date) Screen Negative unknown) (Negative) (unknown) (no (unknown) (unknown) Ur Culture (units (unk nown) date) Indicated? Cult not unknown) indicated (unknown) (no (unknown) (unknown) Ur Culture (units (unk nown) date) Indicated? unknown) (unknown) (no (unknown) (unknown) Ur MDMA Scrn (units (u nknown) date) (Ecstasy) unknown) (Negative) (unknown) (no (unknown) (unknown) Ur MDMA Scrn (units (u nknown) date) (Ecstasy) Negative unknown) (Negative) (unknown) (no (unknown) (unknown) Ur Oxycodone (units (u nknown) date) Screen (Negative) unknown) (unknown) (no (unknown) (unknown) Ur Oxycodone (units (u nknown) date) Screen Negative unknown) (Negative) (unknown) (no (unknown) (unknown) Ur Phencyclidine (units (unknown) date) Scrn (Negative) unknown) (unknown) (no (unknown) (unknown) Ur Phencyclidine (units (unknown) date) Scrn Negative unknown) (Negative) (unknown) (no (unknown) (unknown) Ur Squamous Epith (units (unknown) date) Cells (0-5/HPF) unknown) (unknown) (no (unknown) (unknown) Ur Squamous Epith (units (unknown) date) Cells 0-1 /hpf unknown) (0-5/HPF) (unknown) (no (unknown) (unknown) Urine Bacteria (units (unknown) date) (None) unknown) (unknown) (no (unknown) (unknown) Urine Bacteria (units (unknown) date) None seen (None) unknown) (unknown) (no (unknown) (unknown) Urine Cocaine (units ( unknown) date) Screen (Negative) unknown) (unknown) (no (unknown) (unknown) Urine Cocaine (units ( unknown) date) Screen Negative unknown) (Negative) (unknown) (no (unknown) (unknown) Urine Drug Screen, (units (unknown) date) Rapid Stat unknown) (unknown) (no (unknown) (unknown) Urine Methadone (units (unknown) date) Screen (Negative) unknown) (unknown) (no (unknown) (unknown) Urine Methadone (units (unknown) date) Screen Negative unknown) (Negative) (unknown) (no (unknown) (unknown) Urine Microscopic (units (unknown) date) Stat unknown) (unknown) (no (unknown) (unknown) Urine RBC (units (unkn own) date) (0-5/HPF) unknown) (unknown) (no (unknown) (unknown) Urine RBC None (units (unknown) date) seen (0-5/HPF) unknown) (unknown) (no (unknown) (unknown) Urine WBC (units (unkn own) date) (0-5/HPF) unknown) (unknown) (no (unknown) (unknown) Urine WBC 0-1/hpf (units (unknown) date) (0-5/HPF) unknown) (unknown) (no (unknown) (unknown) Ventricles (units (unk nown) date) unknown) (unknown) (no (unknown) (unknown) Visit Report (units (u nknown) date) Forms: Patient unknown) Portal/API (unknown) (no (unknown) (unknown) Vital Signs - 8 hr (units (unknown) date) unknown) (unknown) (no (unknown) (unknown) Vital Signs (units (un known) date) unknown) (unknown) (no (unknown) (unknown) Vital signs: (units (u nknown) date) unknown) (unknown) (no (unknown) (unknown) WBC (4.5-11.0) (units (unknown) date) X103/uL unknown) (unknown) (no (unknown) (unknown) WBC 4.7 (4.5-11.0) (units (unknown) date) X103/uL unknown) (unknown) (no (unknown) (unknown) [Embedded Image (units (unknown) date) Not Available] unknown) (unknown) (no (unknown) (unknown) alcohol intake (units (unknown) date) frequency: 3 or unknown) more drinks per day (unknown) (no (unknown) (unknown) amoxicillin (units (un known) date) Allergy Verified unknown) 06/04/22 16:00 (unknown) (no (unknown) (unknown) and is pending. (units (unknown) date) However he is unknown) clinically sober. (unknown) (no (unknown) (unknown) any assistance. He (units (unknown) date) is a known unknown) alcoholic well known to this facility. Head CT (unknown) (no (unknown) (unknown) are normal in size (units (unknown) date) and shape.? unknown) (unknown) (no (unknown) (unknown) cab. He denies any (units (unknown) date) suicidal or unknown) homicidal ideations. Blood work which is drawn (unknown) (no (unknown) (unknown) comes to the ED (units (unknown) date) today found down unknown) outside. It is quite cold out. He is (unknown) (no (unknown) (unknown) following (units (unkn own) date) unknown) (unknown) (no (unknown) (unknown) hydroxyzine HCl 50 (units (unknown) date) MG tablet unknown) (unknown) (no (unknown) (unknown) hydroxyzine HCl 50 (units (unknown) date) mg tablet 50 mg PO unknown) Q8HP PRN ##0 07/16/16 (unknown) (no (unknown) (unknown) interface is (units (u nknown) date) normal.? unknown) (unknown) (no (unknown) (unknown) is negative. He is (units (unknown) date) going to go to a unknown) hotel. We are currently calling him a taxi (unknown) (no (unknown) (unknown) lesions.? (units (unkn own) date) unknown) (unknown) (no (unknown) (unknown) lisinopril 20 MG (units (unknown) date) tablet unknown) (unknown) (no (unknown) (unknown) lisinopril 20 mg (units (unknown) date) tablet 20 mg PO unknown) QDAY ##0 07/16/16 (unknown) (no (unknown) (unknown) matter (units (unkno wn) date) unknown) (unknown) (no (unknown) (unknown) minimal movement. (units (unknown) date) unknown) (unknown) (no (unknown) (unknown) minimally (units (unkn own) date) responsive no sign unknown) of trauma. Not able to provide history. He moans (unknown) (no (unknown) (unknown) olanzapine 10 mg (units (unknown) date) tablet (Zyprexa) 10 unknown) mg PO DAILY #30 tabs 10/13/21 (unknown) (no (unknown) (unknown) olanzapine (units (unk nown) date) [Zyprexa] 10 mg unknown) tablet (unknown) (no (unknown) (unknown) patient (units (unkno wn) date) unknown) (unknown) (no (unknown) (unknown) perphenazine 8 MG (units (unknown) date) tablet unknown) (unknown) (no (unknown) (unknown) perphenazine 8 mg (units (unknown) date) tablet 8 mg PO ##0 unknown) 07/16/16 (unknown) (no (unknown) (unknown) size.? (units (unkno wn) date) unknown) (unknown) (no (unknown) (unknown) suspicious (units (unk nown) date) unknown) (unknown) (no (unknown) (unknown) to the (units (unkno wn) date) unknown) (unknown) (no (unknown) (unknown) trazodone 150 MG (units (unknown) date) tablet unknown) (unknown) (no (unknown) (unknown) trazodone 150 mg (units (unknown) date) tablet 150 mg PO unknown) QDAY ##0 07/16/16 (unknown) (no (unknown) (unknown) vertex, with (units (u nknown) date) coronal and unknown) sagittal reformats.? For radiation dose reduction, the (unknown) (no (unknown) (unknown) was used:? (units (unk nown) date) automated exposure unknown) control, adjustment of mA and/or kV according to Result panel 43 (unknown) (no (unknown) (unknown) (no value) (units (unk nown) date) unknown) (unknown) (no (unknown) (unknown) 10 mg PO DAILY (units (unknown) date) Qty: 30 0RF unknown) (unknown) (no (unknown) (unknown) 06/13/22 (units (unkno wn) date) unknown) (unknown) (no (unknown) (unknown) 13:58 (units (unkno wn) date) unknown) (unknown) (no (unknown) (unknown) 150 mg PO QDAY (units (unknown) date) Qty: 0 unknown) (unknown) (no (unknown) (unknown) 20 mg PO QDAY (units ( unknown) date) Qty: 0 unknown) (unknown) (no (unknown) (unknown) 50 mg PO Q8HP (units ( unknown) date) PRNQty: 0 unknown) (unknown) (no (unknown) (unknown) 8 mg PO Qty: 0 (units (unknown) date) unknown) (unknown) (no (unknown) (unknown) Age/Sex: 46 / M (units (unknown) date) unknown) (unknown) (no (unknown) (unknown) Alcohol abuse (units ( unknown) date) unknown) (unknown) (no (unknown) (unknown) Alcohol type: (units ( unknown) date) beer and hard unknown) liquor (unknown) (no (unknown) (unknown) Allergies (units (unkn own) date) unknown) (unknown) (no (unknown) (unknown) Allergy/AdvReac (units (unknown) date) Type Severity unknown) Reaction Status Date / Time (unknown) (no (unknown) (unknown) Blood Pressure (units (unknown) date) 120/72 06/13/22 unknown) 13:58 (unknown) (no (unknown) (unknown) Blood Pressure (units (unknown) date) 120/72 unknown) (unknown) (no (unknown) (unknown) Chief complaint: (units (unknown) date) Toxicology Problem unknown) (unknown) (no (unknown) (unknown) Course (units (unkno wn) date) unknown) (unknown) (no (unknown) (unknown) : 1975 (units (unknown) date) Acct:[id number] unknown) (unknown) (no (unknown) (unknown) Date of Service: (units (unknown) date) 06/13/22 unknown) (unknown) (no (unknown) (unknown) Departure (units (unkn own) date) unknown) (unknown) (no (unknown) (unknown) Discharge Plan (units (unknown) date) unknown) (unknown) (no (unknown) (unknown) ER Physician: (units ( unknown) date) Moises Marques unknown) D.O. (unknown) (no (unknown) (unknown) Emergency Report (units (unknown) date) unknown) (unknown) (no (unknown) (unknown) Exam (units (unkno wn) date) unknown) (unknown) (no (unknown) (unknown) General (units (unkno wn) date) unknown) (unknown) (no (unknown) (unknown) HPI - General (units ( unknown) date) Adult unknown) (unknown) (no (unknown) (unknown) Home Medications (units (unknown) date) unknown) (unknown) (no (unknown) (unknown) Initial Vital (units ( unknown) date) Signs unknown) (unknown) (no (unknown) (unknown) Initial Vital (units ( unknown) date) Signs: unknown) (unknown) (no (unknown) (unknown) [facility] (units (unknown) date) [address] unknown) [place] [address] (unknown) (no (unknown) (unknown) [id number] (units (unk nown) date) unknown) (unknown) (no (unknown) (unknown) Medical History (units (unknown) date) (Reviewed 06/04/22 unknown) @ 18:59 by Rachel Grant DO) (unknown) (no (unknown) (unknown) Medication (units (unk nown) date) Instructions unknown) Recorded Confirmed (unknown) (no (unknown) (unknown) Medication (units (unk nown) date) Instructions unknown) Recorded (unknown) (no (unknown) (unknown) Miscellaneous,Doc (units (unknown) date) MD rafael [Primary unknown) Care Provider] (unknown) (no (unknown) (unknown) Mode of arrival: (units (unknown) date) EMS unknown) (unknown) (no (unknown) (unknown) No Action (units (unkn own) date) unknown) (unknown) (no (unknown) (unknown) Oxygen Delivery (units (unknown) date) Method 06/13/22 unknown) 13:58 (unknown) (no (unknown) (unknown) Oxygen Delivery (units (unknown) date) Method Room Air unknown) (unknown) (no (unknown) (unknown) PTSD (units (unkno wn) date) (post-traumatic unknown) stress disorder) (unknown) (no (unknown) (unknown) Patient History (units (unknown) date) unknown) (unknown) (no (unknown) (unknown) Patient: (units (unkno wn) date) Marianna Meyers unknown) MR#: (unknown) (no (unknown) (unknown) Prescriptions: (units (unknown) date) unknown) (unknown) (no (unknown) (unknown) Previous Rx's (units ( unknown) date) unknown) (unknown) (no (unknown) (unknown) Pulse Oximetry 99 (units (unknown) date) 06/13/22 13:58 unknown) (unknown) (no (unknown) (unknown) Pulse Oximetry 99 (units (unknown) date) unknown) (unknown) (no (unknown) (unknown) Pulse Rate 95 H (units (unknown) date) 06/13/22 13:58 unknown) (unknown) (no (unknown) (unknown) Pulse Rate 95 H (units (unknown) date) unknown) (unknown) (no (unknown) (unknown) Referrals: (units (unk nown) date) unknown) (unknown) (no (unknown) (unknown) Related Data (units (u nknown) date) unknown) (unknown) (no (unknown) (unknown) Respiratory Rate (units (unknown) date) 20 06/13/22 13:58 unknown) (unknown) (no (unknown) (unknown) Respiratory Rate (units (unknown) date) 20 unknown) (unknown) (no (unknown) (unknown) Schizoaffective (units (unknown) date) disorder, bipolar unknown) type (unknown) (no (unknown) (unknown) Signed By: (units (unk nown) date) unknown) (unknown) (no (unknown) (unknown) Smoking Status: (units (unknown) date) Current every day unknown) smoker (unknown) (no (unknown) (unknown) Social History (units (unknown) date) (Reviewed 06/04/22 unknown) @ 18:59 by Rachel Grant DO) (unknown) (no (unknown) (unknown) Source: patient (units (unknown) date) unknown) (unknown) (no (unknown) (unknown) Stated complaint: (units (unknown) date) ETOH unknown) (unknown) (no (unknown) (unknown) Substance Use (units ( unknown) date) Type: marijuana unknown) (unknown) (no (unknown) (unknown) Temperature 97.9 (units (unknown) date) F 06/13/22 13:58 unknown) (unknown) (no (unknown) (unknown) Temperature 97.9 (units (unknown) date) F unknown) (unknown) (no (unknown) (unknown) Time Seen by (units (u nknown) date) Provider: 06/13/22 unknown) 14:04 (unknown) (no (unknown) (unknown) Vital Signs - 8 (units (unknown) date) hr unknown) (unknown) (no (unknown) (unknown) Vital Signs (units (un known) date) unknown) (unknown) (no (unknown) (unknown) Vital signs: (units (u nknown) date) unknown) (unknown) (no (unknown) (unknown) alcohol intake (units (unknown) date) frequency: 3 or unknown) more drinks per day (unknown) (no (unknown) (unknown) amoxicillin (units (un known) date) Allergy Verified unknown) 06/04/22 16:00 (unknown) (no (unknown) (unknown) hydroxyzine HCl (units (unknown) date) 50 MG tablet unknown) (unknown) (no (unknown) (unknown) hydroxyzine HCl (units (unknown) date) 50 mg tablet 50 mg unknown) PO Q8HP PRN ##0 07/16/16 (unknown) (no (unknown) (unknown) lisinopril 20 MG (units (unknown) date) tablet unknown) (unknown) (no (unknown) (unknown) lisinopril 20 mg (units (unknown) date) tablet 20 mg PO unknown) QDAY ##0 07/16/16 (unknown) (no (unknown) (unknown) olanzapine 10 mg (units (unknown) date) tablet (Zyprexa) unknown) 10 mg PO DAILY #30 tabs 10/13/21 (unknown) (no (unknown) (unknown) olanzapine (units (unk nown) date) [Zyprexa] 10 mg unknown) tablet (unknown) (no (unknown) (unknown) perphenazine 8 MG (units (unknown) date) tablet unknown) (unknown) (no (unknown) (unknown) perphenazine 8 mg (units (unknown) date) tablet 8 mg PO ##0 unknown) 07/16/16 (unknown) (no (unknown) (unknown) trazodone 150 MG (units (unknown) date) tablet unknown) (unknown) (no (unknown) (unknown) trazodone 150 mg (units (unknown) date) tablet 150 mg PO unknown) QDAY ##0 07/16/16 Result panel 44 (unknown) (no (unknown) (unknown) (no value) (units (unk nown) date) unknown) (unknown) (no (unknown) (unknown) 10 mg PO DAILY (units (unknown) date) Qty: 30 0RF unknown) (unknown) (no (unknown) (unknown) 06/13/22 14:06 (units (unknown) date) unknown) (unknown) (no (unknown) (unknown) 06/13/22 (units (unkno wn) date) unknown) (unknown) (no (unknown) (unknown) 13:58 06/13/22 (units (unknown) date) unknown) (unknown) (no (unknown) (unknown) 14:12 (units (unkno wn) date) unknown) (unknown) (no (unknown) (unknown) 150 mg PO QDAY (units (unknown) date) Qty: 0 unknown) (unknown) (no (unknown) (unknown) 20 mg PO QDAY (units ( unknown) date) Qty: 0 unknown) (unknown) (no (unknown) (unknown) 50 mg PO Q8HP (units ( unknown) date) PRNQty: 0 unknown) (unknown) (no (unknown) (unknown) 8 mg PO Qty: 0 (units (unknown) date) unknown) (unknown) (no (unknown) (unknown) Age/Sex: 46 / M (units (unknown) date) unknown) (unknown) (no (unknown) (unknown) Alcohol abuse (units ( unknown) date) unknown) (unknown) (no (unknown) (unknown) Alcohol type: (units ( unknown) date) beer and hard unknown) liquor (unknown) (no (unknown) (unknown) Allergies (units (unkn own) date) unknown) (unknown) (no (unknown) (unknown) Allergy/AdvReac (units (unknown) date) Type Severity unknown) Reaction Status Date / Time (unknown) (no (unknown) (unknown) Auscultation: (units ( unknown) date) clear to unknown) auscultation bilaterally (unknown) (no (unknown) (unknown) Blood Pressure (units (unknown) date) 120/72 06/13/22 unknown) 13:58 (unknown) (no (unknown) (unknown) Blood Pressure (units (unknown) date) 120/72 unknown) (unknown) (no (unknown) (unknown) Cardio (units (unkno wn) date) unknown) (unknown) (no (unknown) (unknown) Chief complaint: (units (unknown) date) Toxicology Problem unknown) (unknown) (no (unknown) (unknown) Const (units (unkno wn) date) unknown) (unknown) (no (unknown) (unknown) Consult to [employer] - (units (unknown) date) Instructional Leader unknown) Stat (unknown) (no (unknown) (unknown) Course (units (unkno wn) date) unknown) (unknown) (no (unknown) (unknown) : 1975 (units (unknown) date) Acct:[id number] unknown) (unknown) (no (unknown) (unknown) Date of Service: (units (unknown) date) 06/13/22 unknown) (unknown) (no (unknown) (unknown) Departure (units (unkn own) date) unknown) (unknown) (no (unknown) (unknown) Discharge Plan (units (unknown) date) unknown) (unknown) (no (unknown) (unknown) ED Orders (units (unkn own) date) unknown) (unknown) (no (unknown) (unknown) ER Physician: (units ( unknown) date) Moises Marques unknown) D.O. (unknown) (no (unknown) (unknown) Effort + (units (unkno wn) date) Inspection: normal unknown) respiratory effort (unknown) (no (unknown) (unknown) Emergency Report (units (unknown) date) unknown) (unknown) (no (unknown) (unknown) Exam (units (unkno wn) date) unknown) (unknown) (no (unknown) (unknown) Extrem (units (unkno wn) date) unknown) (unknown) (no (unknown) (unknown) General (units (unkno wn) date) unknown) (unknown) (no (unknown) (unknown) General: No ill (units (unknown) date) appearing unknown) (unknown) (no (unknown) (unknown) General: no (units (un known) date) rashes or lesions unknown) noted (unknown) (no (unknown) (unknown) General: normal (units (unknown) date) to inspection and unknown) capillary refill normal (unknown) (no (unknown) (unknown) General: patient (units (unknown) date) alert, patient unknown) awake and moves all extremities (unknown) (no (unknown) (unknown) HENMT (units (unkno wn) date) unknown) (unknown) (no (unknown) (unknown) HPI - General (units ( unknown) date) Adult unknown) (unknown) (no (unknown) (unknown) HPI narrative: (units (unknown) date) unknown) (unknown) (no (unknown) (unknown) HPI other than (units (unknown) date) saying that he did unknown) drink alcohol and that he was not in any pain (unknown) (no (unknown) (unknown) Head: normal to (units (unknown) date) inspection and unknown) normocephalic (unknown) (no (unknown) (unknown) History of (units (unk nown) date) Present Illness unknown) (unknown) (no (unknown) (unknown) Home Medications (units (unknown) date) unknown) (unknown) (no (unknown) (unknown) Initial Vital (units ( unknown) date) Signs unknown) (unknown) (no (unknown) (unknown) Initial Vital (units ( unknown) date) Signs: unknown) (unknown) (no (unknown) (unknown) [facility] (units (unknown) date) [address] unknown) [place] [address] (unknown) (no (unknown) (unknown) Limitations: (units (u nknown) date) other (Alcohol unknown) intoxication) (unknown) (no (unknown) (unknown) [id number] (units (unk nown) date) unknown) (unknown) (no (unknown) (unknown) Medical History (units (unknown) date) (Reviewed 06/13/22 unknown) @ 14:19 by Moises Marques DO) (unknown) (no (unknown) (unknown) Medication (units (unk nown) date) Instructions unknown) Recorded Confirmed (unknown) (no (unknown) (unknown) Medication (units (unk nown) date) Instructions unknown) Recorded (unknown) (no (unknown) (unknown) Miscellaneous,Doc (units (unknown) date) MD rafael [Primary unknown) Care Provider] (unknown) (no (unknown) (unknown) Mode of arrival: (units (unknown) date) EMS unknown) (unknown) (no (unknown) (unknown) Neuro (units (unkno wn) date) unknown) (unknown) (no (unknown) (unknown) No Action (units (unkn own) date) unknown) (unknown) (no (unknown) (unknown) Ordered: (units (unkno wn) date) unknown) (unknown) (no (unknown) (unknown) Orders (units (unkno wn) date) unknown) (unknown) (no (unknown) (unknown) Oxygen Delivery (units (unknown) date) Method 06/13/22 unknown) 13:58 (unknown) (no (unknown) (unknown) Oxygen Delivery (units (unknown) date) Method Room Air unknown) Room Air (unknown) (no (unknown) (unknown) PTSD (units (unkno wn) date) (post-traumatic unknown) stress disorder) (unknown) (no (unknown) (unknown) Patient History (units (unknown) date) unknown) (unknown) (no (unknown) (unknown) Patient is a (units (u nknown) date) 46-year-old male unknown) who is brought in by EMS after EMS was called by (unknown) (no (unknown) (unknown) Patient: (units (unkno wn) date) Marianna Meyers unknown) MR#: (unknown) (no (unknown) (unknown) Prescriptions: (units (unknown) date) unknown) (unknown) (no (unknown) (unknown) Previous Rx's (units ( unknown) date) unknown) (unknown) (no (unknown) (unknown) Pulse Oximetry 99 (units (unknown) date) 06/13/22 13:58 unknown) (unknown) (no (unknown) (unknown) Pulse Oximetry 99 (units (unknown) date) 97 unknown) (unknown) (no (unknown) (unknown) Pulse Rate 95 H (units (unknown) date) 06/13/22 13:58 unknown) (unknown) (no (unknown) (unknown) Pulse Rate 95 H (units (unknown) date) 57 L unknown) (unknown) (no (unknown) (unknown) ROS Unobtainable: (units (unknown) date) Unobtainable due unknown) to medical condition (unknown) (no (unknown) (unknown) Rate: regular (units ( unknown) date) rate unknown) (unknown) (no (unknown) (unknown) Referrals: (units (unk nown) date) unknown) (unknown) (no (unknown) (unknown) Related Data (units (u nknown) date) unknown) (unknown) (no (unknown) (unknown) Resp (units (unkno wn) date) unknown) (unknown) (no (unknown) (unknown) Respiratory Rate (units (unknown) date) 20 06/13/22 13:58 unknown) (unknown) (no (unknown) (unknown) Respiratory Rate (units (unknown) date) 20 unknown) (unknown) (no (unknown) (unknown) Review of Systems (units (unknown) date) unknown) (unknown) (no (unknown) (unknown) Rhythm: regular (units (unknown) date) rhythm unknown) (unknown) (no (unknown) (unknown) Schizoaffective (units (unknown) date) disorder, bipolar unknown) type (unknown) (no (unknown) (unknown) Signed By: (units (unk nown) date) unknown) (unknown) (no (unknown) (unknown) Skin (units (unkno wn) date) unknown) (unknown) (no (unknown) (unknown) Smoking Status: (units (unknown) date) Current every day unknown) smoker (unknown) (no (unknown) (unknown) Social History (units (unknown) date) (Reviewed 06/13/22 unknown) @ 14:19 by Moises Marques DO) (unknown) (no (unknown) (unknown) Source: EMS (units (un known) date) unknown) (unknown) (no (unknown) (unknown) Stated complaint: (units (unknown) date) ETOH unknown) (unknown) (no (unknown) (unknown) Substance Use (units ( unknown) date) Type: marijuana unknown) (unknown) (no (unknown) (unknown) Temperature 97.9 (units (unknown) date) F 06/13/22 13:58 unknown) (unknown) (no (unknown) (unknown) Temperature 97.9 (units (unknown) date) F unknown) (unknown) (no (unknown) (unknown) Time Seen by (units (u nknown) date) Provider: 06/13/22 unknown) 14:04 (unknown) (no (unknown) (unknown) Vital Signs - 8 (units (unknown) date) hr unknown) (unknown) (no (unknown) (unknown) Vital Signs (units (un known) date) unknown) (unknown) (no (unknown) (unknown) Vital signs: (units (u nknown) date) unknown) (unknown) (no (unknown) (unknown) alcohol intake (units (unknown) date) frequency: 3 or unknown) more drinks per day (unknown) (no (unknown) (unknown) amoxicillin (units (un known) date) Allergy Verified unknown) 06/04/22 16:00 (unknown) (no (unknown) (unknown) and that he did (units (unknown) date) not fall and did unknown) not hit his head. (unknown) (no (unknown) (unknown) another (units (unkno wn) date) individual to have unknown) them call 911. The patient is unable to provide much (unknown) (no (unknown) (unknown) hydroxyzine HCl (units (unknown) date) 50 MG tablet unknown) (unknown) (no (unknown) (unknown) hydroxyzine HCl (units (unknown) date) 50 mg tablet 50 mg unknown) PO Q8HP PRN ##0 07/16/16 (unknown) (no (unknown) (unknown) lisinopril 20 MG (units (unknown) date) tablet unknown) (unknown) (no (unknown) (unknown) lisinopril 20 mg (units (unknown) date) tablet 20 mg PO unknown) QDAY ##0 07/16/16 (unknown) (no (unknown) (unknown) olanzapine 10 mg (units (unknown) date) tablet (Zyprexa) unknown) 10 mg PO DAILY #30 tabs 10/13/21 (unknown) (no (unknown) (unknown) olanzapine (units (unk nown) date) [Zyprexa] 10 mg unknown) tablet (unknown) (no (unknown) (unknown) perphenazine 8 MG (units (unknown) date) tablet unknown) (unknown) (no (unknown) (unknown) perphenazine 8 mg (units (unknown) date) tablet 8 mg PO ##0 unknown) 07/16/16 (unknown) (no (unknown) (unknown) police for the (units (unknown) date) patient being unknown) intoxicated. Per report the patient flagged down a (unknown) (no (unknown) (unknown) trazodone 150 MG (units (unknown) date) tablet unknown) (unknown) (no (unknown) (unknown) trazodone 150 mg (units (unknown) date) tablet 150 mg PO unknown) QDAY ##0 07/16/16 Result panel 45 (unknown) (no (unknown) (unknown) (no value) (units (unk nown) date) unknown) (unknown) (no (unknown) (unknown) <Electronically (units (unknown) date) signed by Moises unknown) Lanker, D.O.> (unknown) (no (unknown) (unknown) 10 mg PO DAILY (units (unknown) date) Qty: 30 0RF unknown) (unknown) (no (unknown) (unknown) 06/13/22 14:06 (units (unknown) date) unknown) (unknown) (no (unknown) (unknown) 06/13/22 1737 (units ( unknown) date) unknown) (unknown) (no (unknown) (unknown) 06/13/22 (units (unkno wn) date) unknown) (unknown) (no (unknown) (unknown) 13:58 06/13/22 (units (unknown) date) unknown) (unknown) (no (unknown) (unknown) 14:12 06/13/22 (units (unknown) date) unknown) (unknown) (no (unknown) (unknown) 14:30 (units (unkno wn) date) unknown) (unknown) (no (unknown) (unknown) 14:54 06/13/22 (units (unknown) date) unknown) (unknown) (no (unknown) (unknown) 150 mg PO QDAY (units (unknown) date) Qty: 0 unknown) (unknown) (no (unknown) (unknown) 15:00 (units (unkno wn) date) unknown) (unknown) (no (unknown) (unknown) 20 mg PO QDAY (units ( unknown) date) Qty: 0 unknown) (unknown) (no (unknown) (unknown) 50 mg PO Q8HP (units ( unknown) date) PRNQty: 0 unknown) (unknown) (no (unknown) (unknown) 8 mg PO Qty: 0 (units (unknown) date) unknown) (unknown) (no (unknown) (unknown) Age/Sex: 46 / M (units (unknown) date) unknown) (unknown) (no (unknown) (unknown) Alcohol abuse (units ( unknown) date) unknown) (unknown) (no (unknown) (unknown) Alcohol (units (unkno wn) date) intoxication unknown) (unknown) (no (unknown) (unknown) Alcohol type: (units ( unknown) date) beer and hard unknown) liquor (unknown) (no (unknown) (unknown) Allergies (units (unkn own) date) unknown) (unknown) (no (unknown) (unknown) Allergy/AdvReac (units (unknown) date) Type Severity unknown) Reaction Status Date / Time (unknown) (no (unknown) (unknown) Auscultation: (units ( unknown) date) clear to unknown) auscultation bilaterally (unknown) (no (unknown) (unknown) Blood Pressure (units (unknown) date) 111/70 unknown) (unknown) (no (unknown) (unknown) Blood Pressure (units (unknown) date) 120/72 06/13/22 unknown) 13:58 (unknown) (no (unknown) (unknown) Blood Pressure (units (unknown) date) 120/72 unknown) (unknown) (no (unknown) (unknown) Cardio (units (unkno wn) date) unknown) (unknown) (no (unknown) (unknown) Chief complaint: (units (unknown) date) Toxicology Problem unknown) (unknown) (no (unknown) (unknown) Clinical (units (unkno wn) date) Impression: unknown) (unknown) (no (unknown) (unknown) Const (units (unkno wn) date) unknown) (unknown) (no (unknown) (unknown) Consult to [facility] - (units (unknown) date) Instructional Leader unknown) Stat (unknown) (no (unknown) (unknown) Course (units (unkno wn) date) unknown) (unknown) (no (unknown) (unknown) : 1975 (units (unknown) date) Acct:[id number] unknown) (unknown) (no (unknown) (unknown) Date of Service: (units (unknown) date) 06/13/22 unknown) (unknown) (no (unknown) (unknown) Departure (units (unkn own) date) unknown) (unknown) (no (unknown) (unknown) Discharge Plan (units (unknown) date) unknown) (unknown) (no (unknown) (unknown) ED Orders (units (unkn own) date) unknown) (unknown) (no (unknown) (unknown) ER Physician: (units ( unknown) date) Moises Marques unknown) D.O. (unknown) (no (unknown) (unknown) Effort + (units (unkno wn) date) Inspection: normal unknown) respiratory effort (unknown) (no (unknown) (unknown) Emergency Report (units (unknown) date) unknown) (unknown) (no (unknown) (unknown) Exam (units (unkno wn) date) unknown) (unknown) (no (unknown) (unknown) Extrem (units (unkno wn) date) unknown) (unknown) (no (unknown) (unknown) General (units (unkno wn) date) unknown) (unknown) (no (unknown) (unknown) General: No ill (units (unknown) date) appearing unknown) (unknown) (no (unknown) (unknown) General: no (units (un known) date) rashes or lesions unknown) noted (unknown) (no (unknown) (unknown) General: normal (units (unknown) date) to inspection and unknown) capillary refill normal (unknown) (no (unknown) (unknown) General: patient (units (unknown) date) alert, patient unknown) awake and moves all extremities (unknown) (no (unknown) (unknown) HENMT (units (unkno wn) date) unknown) (unknown) (no (unknown) (unknown) HPI - General (units ( unknown) date) Adult unknown) (unknown) (no (unknown) (unknown) HPI narrative: (units (unknown) date) unknown) (unknown) (no (unknown) (unknown) HPI other than (units (unknown) date) saying that he did unknown) drink alcohol and that he was not in any pain (unknown) (no (unknown) (unknown) Head: normal to (units (unknown) date) inspection and unknown) normocephalic (unknown) (no (unknown) (unknown) History of (units (unk nown) date) Present Illness unknown) (unknown) (no (unknown) (unknown) Home Medications (units (unknown) date) unknown) (unknown) (no (unknown) (unknown) Initial Vital (units ( unknown) date) Signs unknown) (unknown) (no (unknown) (unknown) Initial Vital (units ( unknown) date) Signs: unknown) (unknown) (no (unknown) (unknown) Instructions: DI (units (unknown) date) for Alcohol Use unknown) Disorder (unknown) (no (unknown) (unknown) [facility] (units (unknown) date) [address] unknown) [place] [address] (unknown) (no (unknown) (unknown) Limitations: (units (u nknown) date) other (Alcohol unknown) intoxication) (unknown) (no (unknown) (unknown) [id number] (units (unk nown) date) unknown) (unknown) (no (unknown) (unknown) MDM Narrative (units ( unknown) date) unknown) (unknown) (no (unknown) (unknown) Medical Decision (units (unknown) date) Making unknown) (unknown) (no (unknown) (unknown) Medical History (units (unknown) date) (Reviewed 06/13/22 unknown) @ 14:19 by Moises Marques DO) (unknown) (no (unknown) (unknown) Medical decision (units (unknown) date) making narrative: unknown) (unknown) (no (unknown) (unknown) Medication (units (unk nown) date) Instructions unknown) Recorded Confirmed (unknown) (no (unknown) (unknown) Medication (units (unk nown) date) Instructions unknown) Recorded (unknown) (no (unknown) (unknown) Miscellaneous,Doc (units (unknown) date) MD rafael [Primary unknown) Care Provider] (unknown) (no (unknown) (unknown) Mode of arrival: (units (unknown) date) EMS unknown) (unknown) (no (unknown) (unknown) Neuro (units (unkno wn) date) unknown) (unknown) (no (unknown) (unknown) No Action (units (unkn own) date) unknown) (unknown) (no (unknown) (unknown) Ordered: (units (unkno wn) date) unknown) (unknown) (no (unknown) (unknown) Orders (units (unkno wn) date) unknown) (unknown) (no (unknown) (unknown) Oxygen Delivery (units (unknown) date) Method 06/13/22 unknown) 13:58 (unknown) (no (unknown) (unknown) Oxygen Delivery (units (unknown) date) Method Room Air unknown) Room Air (unknown) (no (unknown) (unknown) Oxygen Delivery (units (unknown) date) Method Room Air unknown) (unknown) (no (unknown) (unknown) PTSD (units (unkno wn) date) (post-traumatic unknown) stress disorder) (unknown) (no (unknown) (unknown) Patient (units (unkno wn) date) Disposition: Home unknown) (unknown) (no (unknown) (unknown) Patient History (units (unknown) date) unknown) (unknown) (no (unknown) (unknown) Patient is a (units (u nknown) date) 46-year-old male unknown) who is brought in by EMS after EMS was called by (unknown) (no (unknown) (unknown) Patient is (units (unk nown) date) intoxicated. There unknown) is no signs of trauma. Continue to observe until (unknown) (no (unknown) (unknown) Patient: (units (unkno wn) date) Marianna Meyers unknown) MR#: (unknown) (no (unknown) (unknown) Prescriptions: (units (unknown) date) unknown) (unknown) (no (unknown) (unknown) Previous Rx's (units ( unknown) date) unknown) (unknown) (no (unknown) (unknown) Pulse Oximetry 98 (units (unknown) date) 98 unknown) (unknown) (no (unknown) (unknown) Pulse Oximetry 99 (units (unknown) date) 06/13/22 13:58 unknown) (unknown) (no (unknown) (unknown) Pulse Oximetry 99 (units (unknown) date) 97 97 unknown) (unknown) (no (unknown) (unknown) Pulse Rate 69 70 (units (unknown) date) unknown) (unknown) (no (unknown) (unknown) Pulse Rate 95 H (units (unknown) date) 06/13/22 13:58 unknown) (unknown) (no (unknown) (unknown) Pulse Rate 95 H (units (unknown) date) 57 L 64 unknown) (unknown) (no (unknown) (unknown) ROS Unobtainable: (units (unknown) date) Unobtainable due unknown) to medical condition (unknown) (no (unknown) (unknown) Rate: regular (units ( unknown) date) rate unknown) (unknown) (no (unknown) (unknown) Referrals: (units (unk nown) date) unknown) (unknown) (no (unknown) (unknown) Related Data (units (u nknown) date) unknown) (unknown) (no (unknown) (unknown) Resp (units (unkno wn) date) unknown) (unknown) (no (unknown) (unknown) Respiratory Rate (units (unknown) date) 20 06/13/22 13:58 unknown) (unknown) (no (unknown) (unknown) Respiratory Rate (units (unknown) date) 20 unknown) (unknown) (no (unknown) (unknown) Respiratory Rate (units (unknown) date) unknown) (unknown) (no (unknown) (unknown) Review of Systems (units (unknown) date) unknown) (unknown) (no (unknown) (unknown) Rhythm: regular (units (unknown) date) rhythm unknown) (unknown) (no (unknown) (unknown) Schizoaffective (units (unknown) date) disorder, bipolar unknown) type (unknown) (no (unknown) (unknown) Signed By: (units (unk nown) date) unknown) (unknown) (no (unknown) (unknown) Skin (units (unkno wn) date) unknown) (unknown) (no (unknown) (unknown) Smoking Status: (units (unknown) date) Current every day unknown) smoker (unknown) (no (unknown) (unknown) Social History (units (unknown) date) (Reviewed 06/13/22 unknown) @ 14:19 by Moises Marques DO) (unknown) (no (unknown) (unknown) Source: EMS (units (un known) date) unknown) (unknown) (no (unknown) (unknown) Stated complaint: (units (unknown) date) ETOH unknown) (unknown) (no (unknown) (unknown) Substance Use (units ( unknown) date) Type: marijuana unknown) (unknown) (no (unknown) (unknown) Temperature 97.9 (units (unknown) date) F 06/13/22 13:58 unknown) (unknown) (no (unknown) (unknown) Temperature 97.9 (units (unknown) date) F unknown) (unknown) (no (unknown) (unknown) Temperature (units (un known) date) unknown) (unknown) (no (unknown) (unknown) Time Seen by (units (u nknown) date) Provider: 06/13/22 unknown) 14:04 (unknown) (no (unknown) (unknown) Vital Signs - 8 (units (unknown) date) hr unknown) (unknown) (no (unknown) (unknown) Vital Signs (units (un known) date) unknown) (unknown) (no (unknown) (unknown) Vital signs: (units (u nknown) date) unknown) (unknown) (no (unknown) (unknown) alcohol intake (units (unknown) date) frequency: 3 or unknown) more drinks per day (unknown) (no (unknown) (unknown) amoxicillin (units (un known) date) Allergy Verified unknown) 06/04/22 16:00 (unknown) (no (unknown) (unknown) and that he did (units (unknown) date) not fall and did unknown) not hit his head. (unknown) (no (unknown) (unknown) another (units (unkno wn) date) individual to have unknown) them call 911. The patient is unable to provide much (unknown) (no (unknown) (unknown) hydroxyzine HCl (units (unknown) date) 50 MG tablet unknown) (unknown) (no (unknown) (unknown) hydroxyzine HCl (units (unknown) date) 50 mg tablet 50 mg unknown) PO Q8HP PRN ##0 07/16/16 (unknown) (no (unknown) (unknown) lisinopril 20 MG (units (unknown) date) tablet unknown) (unknown) (no (unknown) (unknown) lisinopril 20 mg (units (unknown) date) tablet 20 mg PO unknown) QDAY ##0 07/16/16 (unknown) (no (unknown) (unknown) olanzapine 10 mg (units (unknown) date) tablet (Zyprexa) unknown) 10 mg PO DAILY #30 tabs 10/13/21 (unknown) (no (unknown) (unknown) olanzapine (units (unk nown) date) [Zyprexa] 10 mg unknown) tablet (unknown) (no (unknown) (unknown) patient is (units (unk nown) date) clinically sober. unknown) Turned over to Dr. Leon until disposition. (unknown) (no (unknown) (unknown) perphenazine 8 MG (units (unknown) date) tablet unknown) (unknown) (no (unknown) (unknown) perphenazine 8 mg (units (unknown) date) tablet 8 mg PO ##0 unknown) 07/16/16 (unknown) (no (unknown) (unknown) police for the (units (unknown) date) patient being unknown) intoxicated. Per report the patient flagged down a (unknown) (no (unknown) (unknown) trazodone 150 MG (units (unknown) date) tablet unknown) (unknown) (no (unknown) (unknown) trazodone 150 mg (units (unknown) date) tablet 150 mg PO unknown) QDAY ##0 07/16/16 Result panel 46 (unknown) (no (unknown) (unknown) (no value) (units (unk nown) date) unknown) (unknown) (no (unknown) (unknown) <Electronically (units (unknown) date) signed by Moises Marques D.O.> (unknown) (no (unknown) (unknown) ADDENDUM (units (u nknown) date) unknown) (unknown) (no (unknown) (unknown) 10 mg PO DAILY (units (unknown) date) Qty: 30 0RF unknown) (unknown) (no (unknown) (unknown) 06/13/22 14:06 (units (unknown) date) unknown) (unknown) (no (unknown) (unknown) 06/13/22 1737 (units ( unknown) date) unknown) (unknown) (no (unknown) (unknown) 06/13/22 1901 (units ( unknown) date) unknown) (unknown) (no (unknown) (unknown) 06/13/22 (units (unkno wn) date) unknown) (unknown) (no (unknown) (unknown) 13:58 06/13/22 (units (unknown) date) unknown) (unknown) (no (unknown) (unknown) 14:12 06/13/22 (units (unknown) date) unknown) (unknown) (no (unknown) (unknown) 14:30 (units (unkno wn) date) unknown) (unknown) (no (unknown) (unknown) 14:54 06/13/22 (units (unknown) date) unknown) (unknown) (no (unknown) (unknown) 150 mg PO QDAY (units (unknown) date) Qty: 0 unknown) (unknown) (no (unknown) (unknown) 15:00 (units (unkno wn) date) unknown) (unknown) (no (unknown) (unknown) 20 mg PO QDAY (units ( unknown) date) Qty: 0 unknown) (unknown) (no (unknown) (unknown) 50 mg PO Q8HP (units ( unknown) date) PRNQty: 0 unknown) (unknown) (no (unknown) (unknown) 8 mg PO Qty: 0 (units (unknown) date) unknown) (unknown) (no (unknown) (unknown) Addendum (units (unkno wn) date) Documented By: unknown) Jackeline CastroOAilyn (unknown) (no (unknown) (unknown) Addendum Signed (units (unknown) date) By: unknown) <Electronically signed by Jackeline Castro (unknown) (no (unknown) (unknown) Age/Sex: 46 / M (units (unknown) date) unknown) (unknown) (no (unknown) (unknown) Alcohol abuse (units ( unknown) date) unknown) (unknown) (no (unknown) (unknown) Alcohol (units (unkno wn) date) intoxication unknown) (unknown) (no (unknown) (unknown) Alcohol type: (units ( unknown) date) beer and hard unknown) liquor (unknown) (no (unknown) (unknown) Allergies (units (unkn own) date) unknown) (unknown) (no (unknown) (unknown) Allergy/AdvReac (units (unknown) date) Type Severity unknown) Reaction Status Date / Time (unknown) (no (unknown) (unknown) Auscultation: (units ( unknown) date) clear to unknown) auscultation bilaterally (unknown) (no (unknown) (unknown) Blood Pressure (units (unknown) date) 111/70 unknown) (unknown) (no (unknown) (unknown) Blood Pressure (units (unknown) date) 120/72 06/13/22 unknown) 13:58 (unknown) (no (unknown) (unknown) Blood Pressure (units (unknown) date) 120/72 unknown) (unknown) (no (unknown) (unknown) Cardio (units (unkno wn) date) unknown) (unknown) (no (unknown) (unknown) Chief complaint: (units (unknown) date) Toxicology Problem unknown) (unknown) (no (unknown) (unknown) Clinical (units (unkno wn) date) Impression: unknown) (unknown) (no (unknown) (unknown) Const (units (unkno wn) date) unknown) (unknown) (no (unknown) (unknown) Consult to [employer] - (units (unknown) date) Instructional Leader unknown) Stat (unknown) (no (unknown) (unknown) Course (units (unkno wn) date) unknown) (unknown) (no (unknown) (unknown) : 1975 (units (unknown) date) Acct:[id number] unknown) (unknown) (no (unknown) (unknown) Date of Service: (units (unknown) date) 06/13/22 unknown) (unknown) (no (unknown) (unknown) Departure (units (unkn own) date) unknown) (unknown) (no (unknown) (unknown) Discharge Plan (units (unknown) date) unknown) (unknown) (no (unknown) (unknown) ED Orders (units (unkn own) date) unknown) (unknown) (no (unknown) (unknown) ER Physician: (units ( unknown) date) Jacob Downs D.O. unknown) (unknown) (no (unknown) (unknown) Effort + (units (unkno wn) date) Inspection: normal unknown) respiratory effort (unknown) (no (unknown) (unknown) Emergency Report (units (unknown) date) unknown) (unknown) (no (unknown) (unknown) Exam (units (unkno wn) date) unknown) (unknown) (no (unknown) (unknown) Extrem (units (unkno wn) date) unknown) (unknown) (no (unknown) (unknown) General (units (unkno wn) date) unknown) (unknown) (no (unknown) (unknown) General: No ill (units (unknown) date) appearing unknown) (unknown) (no (unknown) (unknown) General: no (units (un known) date) rashes or lesions unknown) noted (unknown) (no (unknown) (unknown) General: normal (units (unknown) date) to inspection and unknown) capillary refill normal (unknown) (no (unknown) (unknown) General: patient (units (unknown) date) alert, patient unknown) awake and moves all extremities (unknown) (no (unknown) (unknown) HENMT (units (unkno wn) date) unknown) (unknown) (no (unknown) (unknown) HPI - General (units ( unknown) date) Adult unknown) (unknown) (no (unknown) (unknown) HPI narrative: (units (unknown) date) unknown) (unknown) (no (unknown) (unknown) Head: normal to (units (unknown) date) inspection and unknown) normocephalic (unknown) (no (unknown) (unknown) History of (units (unk nown) date) Present Illness unknown) (unknown) (no (unknown) (unknown) Home Medications (units (unknown) date) unknown) (unknown) (no (unknown) (unknown) Initial Vital (units ( unknown) date) Signs unknown) (unknown) (no (unknown) (unknown) Initial Vital (units ( unknown) date) Signs: unknown) (unknown) (no (unknown) (unknown) Instructions: DI (units (unknown) date) for Alcohol Use unknown) Disorder (unknown) (no (unknown) (unknown) [facility] (units (unknown) date) [address] [place] [address] unknown) [place] [address] (unknown) (no (unknown) (unknown) Limitations: (units (u nknown) date) other (Alcohol unknown) intoxication) (unknown) (no (unknown) (unknown) [id number] (units (unk nown) date) unknown) (unknown) (no (unknown) (unknown) MDM Narrative (units ( unknown) date) unknown) (unknown) (no (unknown) (unknown) Medical Decision (units (unknown) date) Making unknown) (unknown) (no (unknown) (unknown) Medical History (units (unknown) date) (Reviewed 06/13/22 unknown) @ 14:19 by Moises Marques DO) (unknown) (no (unknown) (unknown) Medical decision (units (unknown) date) making narrative: unknown) (unknown) (no (unknown) (unknown) Medication (units (unk nown) date) Instructions unknown) Recorded Confirmed (unknown) (no (unknown) (unknown) Medication (units (unk nown) date) Instructions unknown) Recorded (unknown) (no (unknown) (unknown) Miscellaneous,Doc (units (unknown) date) MD rafale [Primary unknown) Care Provider] (unknown) (no (unknown) (unknown) Mode of arrival: (units (unknown) date) EMS unknown) (unknown) (no (unknown) (unknown) Neuro (units (unkno wn) date) unknown) (unknown) (no (unknown) (unknown) No Action (units (unkn own) date) unknown) (unknown) (no (unknown) (unknown) O.> 06/13/22 190 (units (unknown) date) unknown) (unknown) (no (unknown) (unknown) Ordered: (units (unkno wn) date) unknown) (unknown) (no (unknown) (unknown) Orders (units (unkno wn) date) unknown) (unknown) (no (unknown) (unknown) Oxygen Delivery (units (unknown) date) Method 06/13/22 unknown) 13:58 (unknown) (no (unknown) (unknown) Oxygen Delivery (units (unknown) date) Method Room Air unknown) Room Air (unknown) (no (unknown) (unknown) Oxygen Delivery (units (unknown) date) Method Room Air unknown) (unknown) (no (unknown) (unknown) PTSD (units (unkno wn) date) (post-traumatic unknown) stress disorder) (unknown) (no (unknown) (unknown) Patient (units (unkno wn) date) Disposition: Home unknown) (unknown) (no (unknown) (unknown) Patient History (units (unknown) date) unknown) (unknown) (no (unknown) (unknown) Patient is a (units (u nknown) date) 46-year-old male unknown) who is brought in by EMS after EMS was called by (unknown) (no (unknown) (unknown) Patient is (units (unk nown) date) asymptomatic, unknown) sitting upright eating, speaking clearly without (unknown) (no (unknown) (unknown) Patient is (units (unk nown) date) intoxicated. There unknown) is no signs of trauma. Continue to observe until (unknown) (no (unknown) (unknown) Patient: (units (unkno wn) date) Marianna Meyers unknown) MR#: (unknown) (no (unknown) (unknown) Prescriptions: (units (unknown) date) unknown) (unknown) (no (unknown) (unknown) Previous Rx's (units ( unknown) date) unknown) (unknown) (no (unknown) (unknown) Pulse Oximetry 98 (units (unknown) date) 98 unknown) (unknown) (no (unknown) (unknown) Pulse Oximetry 99 (units (unknown) date) 06/13/22 13:58 unknown) (unknown) (no (unknown) (unknown) Pulse Oximetry 99 (units (unknown) date) 97 97 unknown) (unknown) (no (unknown) (unknown) Pulse Rate 69 70 (units (unknown) date) unknown) (unknown) (no (unknown) (unknown) Pulse Rate 95 H (units (unknown) date) 06/13/22 13:58 unknown) (unknown) (no (unknown) (unknown) Pulse Rate 95 H (units (unknown) date) 57 L 64 unknown) (unknown) (no (unknown) (unknown) ROS Unobtainable: (units (unknown) date) Unobtainable due unknown) to medical condition (unknown) (no (unknown) (unknown) Rate: regular (units ( unknown) date) rate unknown) (unknown) (no (unknown) (unknown) Referrals: (units (unk nown) date) unknown) (unknown) (no (unknown) (unknown) Related Data (units (u nknown) date) unknown) (unknown) (no (unknown) (unknown) Resp (units (unkno wn) date) unknown) (unknown) (no (unknown) (unknown) Respiratory Rate (units (unknown) date) 20 06/13/22 13:58 unknown) (unknown) (no (unknown) (unknown) Respiratory Rate (units (unknown) date) 20 unknown) (unknown) (no (unknown) (unknown) Respiratory Rate (units (unknown) date) unknown) (unknown) (no (unknown) (unknown) Review of Systems (units (unknown) date) unknown) (unknown) (no (unknown) (unknown) Rhythm: regular (units (unknown) date) rhythm unknown) (unknown) (no (unknown) (unknown) Schizoaffective (units (unknown) date) disorder, bipolar unknown) type (unknown) (no (unknown) (unknown) Signed By: (units (unk nown) date) unknown) (unknown) (no (unknown) (unknown) Skin (units (unkno wn) date) unknown) (unknown) (no (unknown) (unknown) Smoking Status: (units (unknown) date) Current every day unknown) smoker (unknown) (no (unknown) (unknown) Social History (units (unknown) date) (Reviewed 06/13/22 unknown) @ 14:19 by Moises Marques DO) (unknown) (no (unknown) (unknown) Source: EMS (units (un known) date) unknown) (unknown) (no (unknown) (unknown) Stated complaint: (units (unknown) date) ETOH unknown) (unknown) (no (unknown) (unknown) Substance Use (units ( unknown) date) Type: marijuana unknown) (unknown) (no (unknown) (unknown) Temperature 97.9 (units (unknown) date) F 06/13/22 13:58 unknown) (unknown) (no (unknown) (unknown) Temperature 97.9 (units (unknown) date) F unknown) (unknown) (no (unknown) (unknown) Temperature (units (un known) date) unknown) (unknown) (no (unknown) (unknown) Time Seen by (units (u nknown) date) Provider: 06/13/22 unknown) 14:04 (unknown) (no (unknown) (unknown) Vital Signs - 8 (units (unknown) date) hr unknown) (unknown) (no (unknown) (unknown) Vital Signs (units (un known) date) unknown) (unknown) (no (unknown) (unknown) Vital signs: (units (u nknown) date) unknown) (unknown) (no (unknown) (unknown) [1800] ([place]) (units (unknown) date) Patient received unknown) in sign out from [Shelli]. I have reviewed (unknown) (no (unknown) (unknown) alcohol intake (units (unknown) date) frequency: 3 or unknown) more drinks per day (unknown) (no (unknown) (unknown) amoxicillin (units (un known) date) Allergy Verified unknown) 06/04/22 16:00 (unknown) (no (unknown) (unknown) another (units (unkno wn) date) individual to have unknown) them call 911. The patient is unable to provide (unknown) (no (unknown) (unknown) hydroxyzine HCl (units (unknown) date) 50 MG tablet unknown) (unknown) (no (unknown) (unknown) hydroxyzine HCl (units (unknown) date) 50 mg tablet 50 mg unknown) PO Q8HP PRN ##0 07/16/16 (unknown) (no (unknown) (unknown) lisinopril 20 MG (units (unknown) date) tablet unknown) (unknown) (no (unknown) (unknown) lisinopril 20 mg (units (unknown) date) tablet 20 mg PO unknown) QDAY ##0 07/16/16 (unknown) (no (unknown) (unknown) much HPI other (units (unknown) date) than saying that unknown) he did drink alcohol and that he was not in any (unknown) (no (unknown) (unknown) olanzapine 10 mg (units (unknown) date) tablet (Zyprexa) unknown) 10 mg PO DAILY #30 tabs 10/13/21 (unknown) (no (unknown) (unknown) olanzapine (units (unk nown) date) [Zyprexa] 10 mg unknown) tablet (unknown) (no (unknown) (unknown) pain and that he (units (unknown) date) did not fall and unknown) did not hit his head. (unknown) (no (unknown) (unknown) patient is (units (unn) date) clinically sober. unknown) Turned over to Dr. Leon until disposition. (unknown) (no (unknown) (unknown) perphenazine 8 MG (units (unknown) date) tablet unknown) (unknown) (no (unknown) (unknown) perphenazine 8 mg (units (unknown) date) tablet 8 mg PO ##0 unknown) 07/16/16 (unknown) (no (unknown) (unknown) police for the (units (unknown) date) patient being unknown) intoxicated. Per report the patient flagged down a (unknown) (no (unknown) (unknown) slurring, (units (unkn own) date) ambulation with a unknown) steady gait, able to walk a straight line (unknown) (no (unknown) (unknown) the clinical (units (u nknown) date) course and unknown) performed an independent history and physical exam. (unknown) (no (unknown) (unknown) trazodone 150 MG (units (unknown) date) tablet unknown) (unknown) (no (unknown) (unknown) trazodone 150 mg (units (unknown) date) tablet 150 mg PO unknown) QDAY ##0 07/16/16 Social History date description facility 2022-06-04 00:00 Smokes tobacco daily (finding) [facility] 2022-06-13 00:00 Smokes tobacco daily (finding) [facility] Vital Signs date measurement value units 2022-06-04 00:00 BP_diastolic 70 mmHg 2022-06-04 00:00 BP_systolic 107 mmHg 2022-06-04 00:00 heart_rate 61 /min 2022-06-04 00:00 o2_saturation 98 % 2022-06-04 00:00 respiration_rate 16 /min 2022-06-04 00:00 temperature_metric 36.22 C 2022-06-04 00:00 temperature_standard 97.2 F 2022-06-13 00:00 BP_diastolic 71 mmHg 2022-06-13 00:00 BP_systolic 113 mmHg 2022-06-13 00:00 heart_rate 80 /min 2022-06-13 00:00 o2_saturation 97 % 2022-06-13 00:00 respiration_rate 20 /min 2022-06-13 00:00 temperature_metric 36.61 C 2022-06-13 00:00 temperature_standard 97.9 F 2022-06-13 00:00 weight_metric 99.79 kg 2022-06-13 00:00 weight_standard 220 lb
[2022-08-18 08:25] VITALS: BP 142/87
--- NOTE | 2022-08-18 08:30 | ED Physician Documentation ---
History of Present Illness - Stated complaint Stated Complaint: ETOH - Chief complaint Chief Complaint: MHE - History obtained from History obtained from: EMS - Additonal information Additional information: Patient is a 46-year-old with reported history of bipolar and alcohol abuse presenting for evaluation while awaiting Approval for admission to [facility]. Per EMS the commissioned police officer on scene offered the patient a bed in the emergency department to waiting until [facility] proves his admission and the patient agreed to this plan.Patient denies any pain. He denies SI or HI. He is unable to quantify how much alcohol he has recently been drinking but reports his last intake was just prior to arrival. Review of Systems Constitutional: denies: Fever Cardiac: denies: Chest pain / pressure Respiratory: denies: Dyspnea GI: denies: Abdominal Pain Musculoskeletal: denies: Back pain Neurologic: denies: Headache PD PAST MEDICAL HISTORY - Past Medical History Cardiovascular: Hypertension Psych: Schizophrenia - Past Surgical History Past Surgical History: Yes Ortho: Other - Present Medications Home Medications: Ambulatory Orders Medication Instructions Recorded Confirmed Home Medications Unobtainable 03/17/22 03/17/22 [HOME MEDICATIONS UNOBTAINABLE] - Allergies Allergies/Adverse Reactions: Allergies Allergy/AdvReac Type Severity Reaction Status Date / Time amoxicillin Allergy Unknown Verified 08/18/22 08:12 - Social History Does the pt smoke?: Yes Smoking Status: Current every day smoker Does the pt drink ETOH?: Yes Does the pt have substance abuse?: Yes - Immunizations Immunizations are current?: No Immunizations: TDAP >10years/unknown - POLST Patient has POLST: No PD ED PE NORMAL - General General: Alert and oriented X 3, No acute distress, Well developed/nourished - HEENT HEENT: Atraumatic - Neck Neck: Supple, no meningeal sign - Cardiac Cardiac: RRR - Respiratory Respiratory: No respiratory distress, Clear bilaterally - Abdomen Abdomen: Normal bowel sounds, Soft, Non tender, Non distended - Derm Derm: Warm and dry - Neuro Neuro: Alert and oriented X 3, valuation consultant 2-12 intact, No motor deficit, Normal speech - Psych Psych: Other Results - Vitals Vitals: Vital Signs - 24 hr 08/18/22 08/18/22 08:12 08:24 Temperature 36.9 C Heart Rate 88 77 Respiratory 20 20 Rate Blood Pressure 138/99 H 142/87 H O2 Saturation 99 100 Oxygen O2 Source Room air PD Medical Decision Making - ED course ED course: Patient presenting for evaluation wanting alcohol detox. He has been using alcohol as this morning. Prior ED visits here and to other hospitals in the area with similar presentations. He has no outward signs of trauma and is answering questions appropriately. His speech is clear and he is able to ambulate with a steady gait.He was brought to the emergency department per patient and per EMS because the police department stated he could wait here until he is excepted at [facility]. Patient initially agreed to this plan and thus was transported by EMS but upon arrival here has decided he does not want to wait in the emergency department. He is familiar with [facility] And would like to return to his motel.He denies being suicidal or homicidal and EMS never reported any safety concerns.Patient does not currently meet any criteria for involuntary detainment in the emergency department. Patient has a steady gait and is speaking clearly and clinically appears sober enough for discharge.He has declined any testing or any offers for social work support to help facilitate his admission into a rehab facility. He is advised on concerning symptoms to return for. Departure - Departure Disposition: 01 Home, Self Care Clinical Impression: Alcohol abuse Condition: Stable Instructions: ED Alcohol Abuse Comments: [facility] [address] [place] [address] Main The [facility] offers a monitored and safe setting for individuals withdrawing from alcohol and drugs, and counseling for individuals experiencing a mental health crisis. All services are provided in a 10-bed facility where intensive medical monitoring is required along with stabilization services. The goal of these services is to assess a clients mental health and substance use disorder related needs, and assist them in accessing the services they need to recover. Please return to the emergency department with any concerns. Discharge Date/Time: 08/18/22 08:33
== END 2022-08-18 08:33 | disposition home or self-care (01) ==
LOC: EDUNIT# → ED 07:53
DX: Z02.89 Encounter for other administrative examinations (principal); F10.10 Alcohol abuse, uncomplicated; F17.200 Nicotine dependence, unspecified, uncomplicated
CPT/HCPCS: 99283

== ENCOUNTER 2022-08-19 00:32 | Outpatient (CLI) | payer MEDICARE, MEDICAID | END 2022-08-19 00:33 | disposition EMS.NT | LOC: EMS 00:32 | DX: R45.1 Restlessness and agitation (principal); Z72.89 Other problems related to lifestyle ==

== ENCOUNTER 2022-08-19 10:02 | Outpatient (CLI) | payer MEDICARE, MEDICAID | END 2022-08-19 10:03 | disposition short-term general hospital (02) | LOC: EMS 10:02 | DX: F10.90 Alcohol use, unspecified, uncomplicated (principal) | CPT/HCPCS: A0425; A0429 ==